=== PATIENT | male | born 1940 | race Caucasian/White ===

== ENCOUNTER 2018-05-06 12:15 | Inpatient (IN) | payer MEDICARE ==
[~2018-05-06] VITALS: Ht 175.3 cm; Wt 84.0 kg
[~2018-05-06 12:15] MED LIST: ASPIRIN EC81 MG PO; BUPROPION150 MG PO; COUMADIN2.5 MG PO; COUMADIN5 MG PO; DULERA1 AE1 IN; FERR SULFATE325 MG PO; LISINOPRIL/HYDR1 TA1 PO; METOPROL TAR25 MG PO; MULTI VIT PO; NITROSTAT0.4 MG SL; POTASSIMIN75 MG PO; PRESERVISION PO; PRILOSEC20 MG PO; PROAIR HFA IN; SIMVASTATIN20 MG PO; SYNTHROID100 MCG PO; TH VITAMIN B PO; VITAMIN C TR1000 MG PO; [UNRECOGNIZED DRUG - OTHER] PO
--- NOTE | 2018-05-06 12:24 | NUR ---
PT TO ROOM 10 VIA WHEELCHAIR WITH FAMILY
--- NOTE | 2018-05-06 12:35 | NUR ---
IV INITIATED LABS COLLECTED AND EKG COMPLETED. PT REPORTS SUDDEN ONSET OF DIZZINESS WHILE HE WAS WALKING HIS DOG CLINICAL NEUROPSYCHOLOGIST. PT WAS FOUND BY NEIGHBOR BUT DENIES ANY LOC. PT A&O X 3, PERRLA. MINIMAL ABRASION NOTED TO LEFT EYEBROW WITH NO ACTIVE BLEEDING. PT DENIES ANY PAIN AT THIS TIME BUT STATES "I GET LIKE THIS WHEN MY BLOOD PRESSURE IS LOW". PER FAMILY THIS HAS BEEN HAPPENING FREQUENTLY. BP NOW 90/50. LUNG SOUNDS CLEAR. OTHROSTATIC BP COMPLETED, PT REPORTS ONLY MINIMAL DIZZINESS UPON STANDING. PT ALSO CONCERNED WITH PULSES IN BILATERAL LOWER EXTREMITIES DUE TO STENTS IN LEGS. BILATERAL LEGS WARM TO THE TOUCH AND PEDAL PULSES FAINT BUT EQUAL. MLP AWARE OF PT CONCERNS. FAMILY AND PT AWARE OF PLAN OF CARE AND WAIT TIME. CALL TEAGUE WITHIN REACH.
[2018-05-06 12:59] LABS: IMMATURE GRANULOCYTES 0.2 % (0.0-1.0); MEAN CELL VOLUME 98.6 fL CALC (80.0-100.0); MEAN CORPUSCULAR HGB 32.3 pG CALC (26.0-32.0); MEAN CORPUSCULAR HGB CONC 32.7 g/L CALC (32.0-36.0); NEUT# 2.59 thou/uL (1.82-7.42); RED BLOOD COUNT 2.85 mill/uL (4.70-6.10); RED CELL DISTRI WIDTH 14.6 % (11.5-15.5)
--- NOTE | 2018-05-06 13:00 | NUR ---
PER DAUGHTER PT IS MORE CONFUSED THAN NORMAL AND IS STARING AT THE CALL TEAGUE. PT CONTINUES TO ANSWER QUESTIONS APPROPRIATELY AND IS A&O X3. CALL TEAGUE WITHIN REACH.
[2018-05-06 13:03] LABS: HEMATOCRIT 28.1 % (39.0-50.0); HEMOGLOBIN 9.2 g/dl (14.0-18.0)
[2018-05-06] MEDS ORDERED: B-121000 MC1 PO (13:11)
[2018-05-06] MEDS ORDERED: SYNTHROID150 MCG PO (13:16)
[2018-05-06] MEDS ORDERED: HYDROCHLOROT25 MG PO (13:19)
[2018-05-06] MEDS ORDERED: LISINOPRIL10 MG PO (13:19)
[2018-05-06] MEDS ORDERED: ISOSORB MONO30 MG PO (13:20)
[2018-05-06] MEDS ORDERED: ELIQUIS2.5 MG (13:22)
[2018-05-06 13:24] LABS: ACT PARTIAL THROMBO TIME 28.2 SECONDS (20.0-32.5); INTERNATIONAL NORMALIZED RATIO 1.1 RATIO (0.7-1.3); PROTHROMBIN TIME 11.8 SECONDS (9.0-12.5)
[2018-05-06 13:25] LABS: ALKALINE PHOSPHATASE 72 u/l (38-126); ANION GAP 17 (6-22 (CALC)); BILIRUBIN, TOTAL 0.6 mg/dL (0.0-1.4); BUN 32 mg/dL (8-23); BUN/CREATININE RATIO 25 (12-20 (CALC)); CARBON DIOXIDE 24 mmol/l (22-30); CHLORIDE 105 mmol/l (95-108); CREATININE 1.3 mg/dL (0.7-1.3); GFR 53 ML/MIN (>=60 (CALC)); GFR FOR AFR.AMER. > 60 ML/MIN (>=60 (CALC)); MAGNESIUM 2.2 mg/dL (1.6-2.3); POTASSIUM 4.9 mmol/l (3.5-5.1); SGOT/AST 19 u/l (19-48); SGPT/ALT 23 u/l (11-66); SODIUM 141 mmol/l (137-146); TOTAL PROTEIN 6.8 g/dL (6.3-8.2)
--- NOTE | 2018-05-06 13:30 | NUR ---
VERBAL ORDER RECIEVED FROM EVELIN MARISCAL TO BOLUS 250 MLS OF NS.
[2018-05-06 13:36] LABS: MYOGLOBIN 64 ng/mL (0 - 121)
--- NOTE | 2018-05-06 13:50 | NUR ---
PT PROVIDED URINE SPECIMEN AND FAMILY IS AWARE OF PENDING RESULTS. CALL TEAGUE WITHIN REACH.
[2018-05-06 14:08] LABS: URINE BILIRUBIN - DIPSTICK NEGATIVE (NEGATIVE); URINE BLOOD DIPSTICK NEGATIVE (NEGATIVE); URINE CLARITY CLEAR; URINE COLOR DK. YELLOW; URINE GLUCOSE - DIPSTICK NEGATIVE (NEGATIVE); URINE KETONE TRACE mg/dL (NEGATIVE); URINE LEUK ESTERASE TRACE (NEGATIVE); URINE NITRITE - DIPSTICK NEGATIVE (Negative); URINE PROTEIN - DIPSTICK NEGATIVE (NEG-TRACE); URINE SPECIFIC GRAVITY 1.015; URINE UROBILINOGEN - DIPSTICK 0.2 E.U./dL (0.2)
--- NOTE | 2018-05-06 14:20 | NUR ---
MLP AT BEDSIDE TO DISCUSS RESULTS AND PLAN FOR ADMISSION. PT REQUESTING SOMETHING TO EAT. ASSISTED WITH RECTAL EXAM. PT TOLERATED WELL. CALL TEAGUE WITHIN REACH.
--- NOTE | 2018-05-06 14:35 | NUR ---
FAMILY IS AWARE OF PENDING ADMISSION. FAMILY IS REQUESTING A NICOTINE PATCH, MLP NOTIFIED. IV FLUIDS INFUSING, IV SITE FREE FROM REDNESS AND EDEMA.
--- NOTE | 2018-05-06 15:15 | NUR ---
PER PT HE ALSO TAKES POTASSIUM AND MAGNESIUM EVERY DAY. PT'S WILL CALL WITH CORRECT DOSE. DAYAN MCKEON NOTIFIED.
--- NOTE | 2018-05-06 15:25 | NUR ---
REPORT CALLED TO DAYAN MCKEON.
--- NOTE | 2018-05-06 15:38 | NUR ---
Admission Note Report Given to: DAYAN MCKEON Transported by: Wheelchair X Stretcher Transported with: X Nurse Transporter X Patent IV O2 X Plunger Machine Operator PT TO ROOM 269, BEDSIDE REPORT TO MIKE.
--- NOTE | 2018-05-06 15:44 | NUR ---
PT ARRIVED TO MS2 VIA STRETCHER ACCOMPANIED BY ER STAFF AND FAMILY. PT AMBULATED WELL TO SCALE THEN STRETCHER. ALERT AND ORIENTED X3, ABRASION TO RFA, SKIN INTACT. ADMISSION ASSESSMENT COMPLETED. RESP EVEN AND UNLABORED. FAMILY TOOK MEDS HOME, RANEXA AND BUPROPION SENT TO PHARMACY TO BE PROFILED. IVF INFUSING WITHOUT DIFFICULTY. CALL LIGHT IN REACH,CONTINUE TO MONITOR.
[2018-05-06 15:45] VITALS: BP 130/75
[2018-05-06 19:16] VITALS: BP 92/51
[2018-05-06 20:07] VITALS: BP 85/50; BP 86/46; BP 92/50
[2018-05-07] VITALS (11 sets, daily range): BP systolic 94–131; BP diastolic 57–68
--- NOTE | 2018-05-07 04:54 | NUR ---
PATIENT RESTING IN BED AT THIS TIME-APPEARS SLEEPING WITH EYES CLOSED. IVF PATENT AND INFUSING AT 75CC/HR-SITE REMAINS HEALTHY AT THIS TIME. CALL LIGHT IN REACH. WILL CONT TO MONITOR.
[2018-05-07 05:09] LABS: HEMATOCRIT 26.2 % (39.0-50.0); HEMOGLOBIN 8.5 g/dl (14.0-18.0); MEAN CELL VOLUME 99.2 fL CALC (80.0-100.0); MEAN CORPUSCULAR HGB 32.2 pG CALC (26.0-32.0); MEAN CORPUSCULAR HGB CONC 32.4 g/L CALC (32.0-36.0); NEUT# 2.19 thou/uL (1.82-7.42); RED BLOOD COUNT 2.64 mill/uL (4.70-6.10); RED CELL DISTRI WIDTH 14.6 % (11.5-15.5)
[2018-05-07 05:10] LABS: ALBUMIN 3.2 g/dL (3.2-5.0); ALKALINE PHOSPHATASE 65 u/l (38-126); ANION GAP 9 (6-22 (CALC)); BILIRUBIN, TOTAL 0.4 mg/dL (0.0-1.4); BUN 25 mg/dL (8-23); BUN/CREATININE RATIO 24 (12-20 (CALC)); CARBON DIOXIDE 26 mmol/l (22-30); CHLORIDE 110 mmol/l (95-108); CREATININE 1.1 mg/dL (0.7-1.3); GFR > 60 ML/MIN (>=60 (CALC)); GFR FOR AFR.AMER. > 60 ML/MIN (>=60 (CALC)); POTASSIUM 4.4 mmol/l (3.5-5.1); SGOT/AST 16 u/l (19-48); SGPT/ALT 24 u/l (11-66); SODIUM 141 mmol/l (137-146); TOTAL PROTEIN 5.7 g/dL (6.3-8.2)
--- NOTE | 2018-05-07 07:55 | NUR ---
PT SITTING ON SIDE OF BED EATING BREAKFAST, NO SIGNS OF DISTRESS NOTED, RESP EVEN AND UNLABORED. PT ALERT AND ORIENTED X3, NO EDEMA. VITALS OBTAINED. BP LOW, MAINFRAME PROGRAMMER ANALYST NOTIFIED, IMDUR HELD. ASSESSMENT COMPLETED AT THIS TIME. CALL LIGHT IN REACH,CONTINUE TO MONITOR.
--- NOTE | 2018-05-07 14:33 | NUR ---
PT AMBULATING HALLWAY WITH TURBINE INSPECTOR, PT TOLERATING WELL, NO SIGNS OF DISTRESS NOTED, RESP EVEN AND UNLABORED. CONTINUE TO MONITOR.
--- NOTE | 2018-05-07 17:36 | NUR ---
PT SITTING ON SIDE OF BED, EATING DINNER. NO SIGNS OF DISTRESS NOTED, RESP EVEN AND UNLABORED. PT VOICES NO NEEDS OR COMPLAINTS AT THIS TIME. CALL LIGHT IN REACH,CONTINUE TO MONITOR.
--- NOTE | 2018-05-07 20:36 | NUR ---
PATIENT RESTING IN BED WITH HOB ELEVATED-AWAKE ALERT AND ORIENTEDX3. PATIENT WITH IVF NS PATENT AND INFUSING VIA LEFT AC IV SITE AT 75CC/HR. SITE APPEARS HEALTHY AT THIS TIME. PATIENT VOIDING QS CLEAR YELLOW URINE IN URINAL. ABD SOFT, NON-TENDER WITH ACTIVE BS-LAST BM YESTERDAY. PATIENT WITH NO PEDAL EDEMA AND PULSES FAINTLY PALPABLE. PATIENT STATES THAT HE IS HAVING NO CHEST PAIN AT THIS TIME BUT WHEN HE DOES EXHERT HIMSELF HE DOES SOMETIMES GET SHARP CHEST PAIN THAT RADIATES DOWN LEFT ARM-RELIEVED BY REST OR NITRO SL. DENIES ANY DIZZINESS OR LIGHTHEADEDNESS AT THIS TIME. TAKING PO FLUIDS WELL. SAFETY PRECAUTIONS REINFORCED. CALL LIGHT IN REACH. WILL CONT TO MONITOR.
--- NOTE | 2018-05-07 23:42 | NUR ---
PATIENT APPEARS SLEEPING WITH EYES CLOSED. RESP ARE EVEN AND UNLABORED. IVF NS PATENT AND INFUSING AT 75CC/HR VIA LEFT AC SITE. CALL LIGHT IN REACH. WILL CONT TO MONITOR.
[2018-05-08] VITALS (13 sets, daily range): BP systolic 98–135; BP diastolic 49–69
--- NOTE | 2018-05-08 04:42 | NUR ---
APPEARS SLEEPING AT THIS TIME WITH EYES CLOSED. RESP EVEN AND UNLABORED. TELE MONITORING DEVICE IN PLACE. CALL LIGHT IN REACH. WILL CONT TO MONITOR.
[2018-05-08 04:47] LABS: HEMATOCRIT 25.8 % (39.0-50.0); HEMOGLOBIN 8.3 g/dl (14.0-18.0); IMMATURE GRANULOCYTES 0.6 % (0.0-1.0); MEAN CELL VOLUME 99.6 fL CALC (80.0-100.0); MEAN CORPUSCULAR HGB CONC 32.2 g/L CALC (32.0-36.0); NEUT# 2.95 thou/uL (1.82-7.42); RED BLOOD COUNT 2.59 mill/uL (4.70-6.10); RED CELL DISTRI WIDTH 14.5 % (11.5-15.5)
[2018-05-08 04:57] LABS: ANION GAP 10 (6-22 (CALC)); BUN 20 mg/dL (8-23); BUN/CREATININE RATIO 21 (12-20 (CALC)); CARBON DIOXIDE 25 mmol/l (22-30); CHLORIDE 111 mmol/l (95-108); CREATININE 0.9 mg/dL (0.7-1.3); GFR > 60 ML/MIN (>=60 (CALC)); GFR FOR AFR.AMER. > 60 ML/MIN (>=60 (CALC)); POTASSIUM 4.4 mmol/l (3.5-5.1); SODIUM 142 mmol/l (137-146)
--- NOTE | 2018-05-08 10:54 | NUR ---
PT C/O R SIDE NUMBNESS TO HIS ARM AND FACE.VSS, RIGGING HELPER AT BEDSIDE, DISCUSSING POC.PT TAKEN DOWN TO RADIOLOGY STAT FOR CT/BRAIN AND CTA. CONTINUE TO MONITOR.
--- NOTE | 2018-05-08 11:15 | NUR ---
PT RETURNED TO ROOM, NOTED 20G TO RAC STARTED IN CT, CONTINUED FLUIDS TO SITE. CALL LIGHT IN REACH,CONTINUE TO MONITOR.
--- NOTE | 2018-05-08 11:40 | NUR ---
PT SITTING IN RECLINER AT BEDSIDE, EATING LUNCH. NO SIGNS OF DISTRESS NOTED, RESP EVEN AND UNLABORED. PT VOICES NO NEEDS OR COMPLAINTS AT THIS TIME. MEDICATED PER MAR.ENCOURAGED TO CALL IF ANY ISSUES REOCCUR OR WORSEN. CALL LIGHT IN REACH,CONTINUE TO MONITOR.
--- NOTE | 2018-05-08 14:46 | NUR ---
CALLED, VOICEMAIL LEFT NOTIFYING MD OF CONSULT.
--- NOTE | 2018-05-08 15:43 | NUR ---
PT RESTING IN BED, NO SIGNS OF DISTRESS NOTED,RESP EVEN AND UNLABORED.PT VOICES NO NEEDS OR COMPLAINTS AT THIS TIME. CALL LIGHT IN REACH,CONTINUE TO MONITOR.
--- NOTE | 2018-05-08 19:17 | NUR ---
PATIENT RESTING IN BED POSITIONED ON HIS SIDE WITH EYES CLOSED-APPEARS SLEEPING, RESP ARE EVEN AND UNLABORED. TELE MONITORING DEVICE IN PLACE. HEP LOCK TO RIGHT AC INTACT. CALL LIGHT IN REACH. WILL CONT TO MONITOR.
--- NOTE | 2018-05-08 20:54 | NUR ---
PATIENT RESTING IN BED-C/O TINGLING AROUND HIS MOUTH AND RIGHT ARM. VS TAKEN AND RECORDED. O2 VIA NASAL CANNULA AT 2LPM APPLIED. NO OTHER CHANGES IN NEURO CHECKS. HS MEDS WERE GIVEN AND PATIENT STATES THAT THE SX HAVE SUBSIDED. SAFETY PRECAUTIONS REINFORCED. O2 REMAINS IN PLACE. CALL LIGHT IN REACH. WILL CONT TO MONITOR.
--- NOTE | 2018-05-08 23:46 | NUR ---
PATIENT RESTING IN BED WITH O2 VIA NASAL CANNULA IN PLACE. PATIENT WITH NON-PRODUCTIVE COUGH. TEMP 100.3 AT THIS TIME. BLANKET REMOVED. CALL LIGHT IN REACH. WILL CONT TO MONITOR.
--- NOTE | 2018-05-09 03:52 | NUR ---
APPEARS SLEEPING WITH EYES CLOSED. RESP ARE EVEN AND UNLABORED. CALL LIGHT IN REACH. WILL CONT TO MONITOR.
[2018-05-09 04:00] VITALS: BP 92/50
--- NOTE | 2018-05-09 07:10 | NUR ---
REPORT RECEIVED FROM ESVIN RIBEIRO;PT APPEARS TO BE SLEEPING IN HIGH FOWLERS POSITION;RESPIRATIONS APPEAR EVEN AND UNLABORED ON 02 @ 2L VIA NC;NO S/S OF DISTRESS NOTED;TELE MONITOR IN PLACE;FALL PRECAUTIONS NOTED WITH BED IN THE LOWEST POSITION;CALL LIGHT IN REACH;WILL CONTINUE TO MONITOR
[2018-05-09 09:13] VITALS: BP 108/63
--- NOTE | 2018-05-09 09:15 | NUR ---
PT SITTING AT BEDSIDE;PT REPORTS IMPROVEMENT IN "NUMBNESS" TO FACE;VS OBTAINED AND ASSESSMENT COMPLETED;RESPIRATIONS EVEN AND UNLABORED ON RA,OXYGEN @ BEDSIDE PRN FOR COMFORT;ABDOMEN SOFT ON PALPATION AND ACTIVE IN ALL 4 QUADRANTS;WEAK PEDAL PULSES;NICOTINE PATCH APPLIED TO RIGHT SHOULDER;#20G TO RAC FLUSHED AND PATENT,NEW TEGADERM APPLIED PER REQUEST;TELE MONITOR IN PLACE;ABRASION NOTED TO LEFT EYE,KENIA AND CDI;PT DENIES ANY CURRENT NEEDS;FRESH WATER PROVIDED PER REQUEST;FALL PRECAUTIONS IN PLACE WITH CALL LIGHT IN REACH;WILL CONTINUE TO MONITOR
[2018-05-09 11:13] VITALS: BP 99/46
--- NOTE | 2018-05-09 11:45 | NUR ---
PT APPEARS TO BE SLEEPING IN SUPINE POSITION;NO S/S OF DISTRESS NOTED;RESPIRATIONS EVEN AND UNLABORED ON RA;TELE MONITOR IN PLACE;BED IN THE LOWEST POSITION WITH CALL LIGHT IN REACH;WILL CONTINUE TO MONITOR
--- NOTE | 2018-05-09 13:44 | NUR ---
ESVIN PATHAK AT BEDSIDE INTERROGATING PACEMAKER
[2018-05-09 15:21] VITALS: BP 112/58
--- NOTE | 2018-05-09 16:00 | NUR ---
PT BROTHER CALLED NURSES STATION LOOKING FOR PATIENT INFORMATION;INFORMED FAMILY MEMBER THAT IF HE DIDNT HAVE A PASSCODE I LEGALLY CAN NOT PROVIDE ANY INFORMATION BUT I COULD TRANSFER HIS CALL TO THE PATIENT ROOM;PT REPORTS THAT HE WOULD CALL BACK LATER,PT MADE AWARE
--- NOTE | 2018-05-09 16:19 | NUR ---
PT RESTING IN SUPINE POSITION;PT DENIES ANY CURRENT PAIN OR NEEDS;RESPIRATIONS EVEN AND UNLABORED ON RA;TELE MONITOR IN PLACE;PT INFORMED OF HIS BROTHER CALLING TO OBTAIN INFORMATION AND NOT HAVING THE PATIENT PASSCODE,THEREFORE NO INFORMATION WAS ABLE TO BE GIVEN AT THAT TIME;PT STATING "HE KEEPS ASKING ME AND HE DOESNT NEED TO KNOW ANYTHING,GOOD GIRL DONT GIVE IT TO HIM";RE-ASSURED PT AND ALL QUESTIONS ANSWERED;FALL PRECAUTIONS IN PLACE WITH CALL LIGHT IN REACH;WILL CONTINUE TO MONITOR
[2018-05-09 19:18] VITALS: BP 144/73
--- NOTE | 2018-05-09 19:20 | NUR ---
BEDSIDE REPORT RECEIVED FROM DAYAN VAZQUEZ. PT SITTING UP ON EDGE OF BED; ALERT, ORIENTED, AND TALKATIVE. DENIES PAIN. RESPIRATIONS EVEN AND UNLABORED ON ROOM AIR; O2 AT BEDSIDE PRN. TELE ON. AWAITING STOOL SAMPLE FROM PT. PLAN OF CARE DISCUSSED. PT ENCOURAGED TO VERBALZIE CONCERNS. STATES UNDERSTANDING. SAFETY MEASURES IN PLACE. CALL LIGHT WITHIN REACH.
[2018-05-10] VITALS (9 sets, daily range): BP systolic 87–131; BP diastolic 35–59
--- NOTE | 2018-05-10 | NUR ---
PT ASLEEP AT THIS TIME WITH NO SIGNS OF DISTRESS. RESPIRATIONS EVEN AND UNLABORED ON ROOM AIR. WAS OFF UNIT EARLIER VIA WHEELCHAIR FOR CT WHICH HE TOLERATED WELL. PT IS STAND BY ASSIST IN ROOM DUE TO POSITIVE ORTHOSTATIC BLOOD PRESSURES; STEADY GAIT. IV SITE APPEARS HEALTHY AND FLUSHES. SAFETY MEASURES IN PLACE. CALL LIGHT WITHIN REACH.
--- NOTE | 2018-05-10 03:55 | NUR ---
NO ACUTE CHANGES IN CONDITION THROUGHOUT THE NIGHT. PT USES CALL LIGHT PRN FOR ASSISTANCE. SAFETY MEASURES IN PLACE. CALL LIGHT WITHIN REACH.
[2018-05-10 04:47] LABS: HEMATOCRIT 26.2 % (39.0-50.0); HEMOGLOBIN 8.5 g/dl (14.0-18.0); IMMATURE GRANULOCYTES 0.3 % (0.0-1.0); MEAN CELL VOLUME 98.5 fL CALC (80.0-100.0); MEAN CORPUSCULAR HGB CONC 32.4 g/L CALC (32.0-36.0); NEUT# 3.95 thou/uL (1.82-7.42); RED BLOOD COUNT 2.66 mill/uL (4.70-6.10); RED CELL DISTRI WIDTH 14.4 % (11.5-15.5)
[2018-05-10 04:54] LABS: ANION GAP 12 (6-22 (CALC)); BUN 21 mg/dL (8-23); BUN/CREATININE RATIO 21 (12-20 (CALC)); CARBON DIOXIDE 28 mmol/l (22-30); CHLORIDE 104 mmol/l (95-108); GFR > 60 ML/MIN (>=60 (CALC)); GFR FOR AFR.AMER. > 60 ML/MIN (>=60 (CALC)); MAGNESIUM 1.8 mg/dL (1.6-2.3); POTASSIUM 4.8 mmol/l (3.5-5.1); SODIUM 139 mmol/l (137-146)
--- NOTE | 2018-05-10 08:30 | NUR ---
ASSESSMENT COMPLETD: PT IS SITTING ON THE SIDE OF THE BED., NO DISTRESS NOTED OTHO STATICS COMPLETED: SITTIN/35 STANDIN/50 LAYING :96/37 HR IS REG, PACED, ABD IS SOFT WITH ACTIVE BS. TELE MONITOR IN PLACE. CONITNUE TO OBSERVE AND MONITOR.
--- NOTE | 2018-05-10 08:53 | NUR ---
PT WAS SEEN SUPINE ON BED. AGREED TO PARTICIPATE WITH TX. PT WAS ABLE TO AMBULATE 100 FT. X 2 WITH RW AND SBA. HE APPEARED TO BE STABLE AND SAFE TO AMB. INDEP. WITH RW. PT REQUESTED TO REST LONGTERM BEFORE PROCEEDING BACK TO HIS ROOM. LEFT PT SITTING ON BED WITH CALL TEAGUE BESIDE HIM. NO ADVERSE RXNS NOTED OR REPORTED AT THE END OF TX.
--- NOTE | 2018-05-10 12:25 | NUR ---
PT IS SITTING ON THE SIDE OF THE BED, WITH NO DISTRESS NOTED. IV SITE IS FREE FROM REDNESS OR EDEMA. CONTINUE TO OSBERVE AND MONITOR
--- NOTE | 2018-05-10 16:30 | NUR ---
PT IS RELAXING ON THE SIDE OF THE BED, WITH NO DISTRESS NOTED. IV SITE IS FREE FROM REDNESS OR EDEMA.
--- NOTE | 2018-05-10 19:48 | NUR ---
BEDSIDE REPORT RECEIVED FROM DAYAN TYLER. PT RESTING IN BED ON LEFT SIDE; ALERT AND ORIENTED. DENIES PAIN. RESPIRATIONS EVEN AND UNLABROED ON ROOM AIR. PLAN OF CARE REVIEWED. PT ENCOURAGED TO VERBALIZE CONCERNS. STATES UNDERSTANDING. SAFETY MEASURES IN PLACE CALL LIGHT WITHIN REACH.
--- NOTE | 2018-05-10 22:07 | NUR ---
PT FOUND LAYING ON THE FLOOR OF BATHROOM ON LEFT SIDE. AUTO ENGINE MECHANIC STATES THAT SHE HEARD A BANG AND FOUND PT IN THIS POSITION. ROOM WELL LIT, CALL LIGHT WAS WITHIN REACH, BED IN LOW POSITION, AND NON SKID SOCKS ON. PT DENIES HITTING HEAD AND DENIES PAIN. PT STATES THAT HE WAS AMBULATING TO THE TOILET TO HAVE A BM. PT ASSISTED TO STANDING POSITION WITH ONE PERSON ASSIST AND ONTO TOILET. BLOOD PRESSURE 131/45 PULSE 60 RESPIRATIONS 22 OXYGEN SATURATION 97% ON RA. NOTIFED VIA TELEPHONE WITH NO NEW ORDERS. CONTINUE TO OBTAIN ORTHOSTATIC BLOOD PRESSURES Q SHIFT. PT EDUCATED ON SAFETY AND FALL RISK STATUS; CALL LIGHT SYSTEM REVIEWED. SAFETY MEASURES IN PLACE. CALL LIGHT WITHIN REACH.
[2018-05-11] VITALS (12 sets, daily range): BP systolic 85–114; BP diastolic 36–66
--- NOTE | 2018-05-11 00:15 | NUR ---
PT ASLEEP AT THIS TIME WITH NO SIGNS OF DISTRESS; AWAKENS TO VERBAL STIMULI. NEURO CHECKS REMAIN WNL FOR PT AND PT CONTINUES TO DENY ANY PAIN. REPSIRATIONS EVEN AND UNLABORED ON ROOM AIR. AMBULATED TO BATHROOM WITH STAND BY ASSIST; HAS USED CALL LIGHT SINCE FALL EARLIER THIS EVENING. IV SITE APPEARS HEALTHY AND FLUSHES. SAFETY MEASURES IN PLACE. CALL LIGHT WITHIN REACH.
--- NOTE | 2018-05-11 04:11 | NUR ---
NO ACUTE CHANGES IN CONDITION THROUGHOUT THE NIGHT. PT HAS NO REQUESTS OR CONCERNS WHILE AWAKE. SAFETY MEASURES IN PLACE. CALL LIGHT WITHIN REACH.
[2018-05-11 04:53] LABS: HEMATOCRIT 25.8 % (39.0-50.0); HEMOGLOBIN 8.4 g/dl (14.0-18.0); MEAN CELL VOLUME 98.5 fL CALC (80.0-100.0); MEAN CORPUSCULAR HGB 32.1 pG CALC (26.0-32.0); MEAN CORPUSCULAR HGB CONC 32.6 g/L CALC (32.0-36.0); RED BLOOD COUNT 2.62 mill/uL (4.70-6.10); RED CELL DISTRI WIDTH 14.3 % (11.5-15.5)
--- NOTE | 2018-05-11 07:15 | NUR ---
REPORT RECEIVED FROM ESVIN LAKHANI;PT RESTING IN SUPINE POSITION;INTRODUCED SELF TO PT AND POC DISCUSSED;PT DENIES ANY CURRENT PAIN OR DISCOMFORTS;RESPIRATIONS EVEN AND UNLABORED ON RA;TELE MONITOR IN PLACE;EDUCATED PT ON THE IMPORTANCE OF CALLING FOR ASSISTANCE WITH AMBULATION R/T RECENT EVENTS CONSISTING OF A FALL LAST NIGHT 05/10/18,PT VERBALIZES UNDERSTANDING;FALL PRECAUTIONS IN PLACE WITH BED IN THE LOWEST POSITION;CALL LIGHT IN REACH;WILL CONTINUE TO MONITOR
--- NOTE | 2018-05-11 08:20 | NUR ---
PT RESTING AT BEDSIDE;VS OBTAINED AND ASSESSMENT COMPLETED;PT DENIES ANY CURRENT PAIN OR DISCOMFORTS,PAIN SCALE AND REPORTING RE-EDUCATED;RESPIRATIONS EVEN AND UNLABORED ON RA,CLEAR/DIMINISHED LUNG SOUNDS NOTED;ABDOMEN SOFT ON PALPATION AND HYPERACTIVE IN ALL 4 QUADRANTS,LAST BM 05/06/18 WARM PRUNE JUICE PROVIDED AT THIS TIME;PT DOES REPORT FLATULENCE;#20G TO RAC FLUSHED AND PATENT,SITE APPEARS HEALTHY;TELE MONITOR IN PLACE;SMALL ABRASION NOTED TO LEFT EYEBROW,KENIA;NICOTINE PATCH APPLIED TO RIGHT UPPER ARM;PT DENIES ANY NEEDS AND IS ENCOURAGED TO CALL FOR ASSISTANCE IF NEEDED;FALL PRECAUTIONS IN PLACE WITH BED IN THE LOWEST POSITION;CALL LIGHT IN REACH;WILL CONTINUE TO MONITOR
--- NOTE | 2018-05-11 09:20 | NUR ---
PT AMBULATING THE HALLWAYS WITH PHYSICAL THERPAY AND WALKER,STEADY GAIT OBSERVED.
--- NOTE | 2018-05-11 10:06 | NUR ---
PT WAS SEEN RESTING ON BED. PT WAS REMINDED ON FALL PRECAUTIONS AND INSTRUCTED ON CALLING THE NURSE IF HE NEEDED TO GET UP. HE WAS ABLE TO SAFELY AMBULATE 100 FT. X 2 WITH RW AND CGA WITH NO COMPLAINTS OTHER THAN A REQUEST TO TAKE REST PERIOD IN BETWEEN. PT THEN DID RBG-JE-PLELX X 10 REPS USING B HANDS TO PUSH SELF UP TO STAND. HE THEN RETURNED TO HIS ROOM AND SAT ON THE RECLINER WITH LEG REST IN ELEVATED POSITION. HANDED THE CALL TEAGUE TO PT AND ONCE AGAIN REINFORCED FALL PRECAUTIONS. NO ADVERSE REACTIONS NOTED OR REPORTED AT THE END OF TX.
--- NOTE | 2018-05-11 11:30 | NUR ---
PT OOB RESTING IN RECLINER;ORTHOSTATICS WERE PREVIOUSLY OBTAINED BY ISRRAEL CURRY AND POSITIVE ON AMBULATION:SEE INTERVENTIONS;RESPIRATIONS EVEN AND UNLABORED ON RA;TELE MONITOR IN PLACE;NO BM AT THIS TIME,PT WAS GIVEN MIRLAX AND MOM AT 1000;IV SITE REMAINS PATENT TO [facility];PT DENIES ANY NEEDS;FALL PRECAUTIONS IN PLACE WITH CALL LIGHT IN REACH;WILL CONTINUE TO MONITOR
--- NOTE | 2018-05-11 14:00 | NUR ---
CONSENT OBTAINED AT THIS TIME,PT VERBALIZES UNDERSTANDING OF BLOOD TRANSFUSION;ALL QUESTIONS ANSWERED AND TRANSFUSION DISCUSSED INDEPTH;WILL CONTINUE TO MONITOR
--- NOTE | 2018-05-11 14:34 | NUR ---
FIRST UNIT OF PRBC'S STARTED AT THIS TIME BY PAULINERN AND DAYAN BONNER;S/S OF A BLOOD TRANSFUSION REACTION EXPLAINED IN DETAIL AND PT VERBALIZES UNDERSTANDING;WRITTER TO REMAIN AT BEDSIDE FOR THE INITIAL 15 MINS;WILL CONTINUE TO MONITOR
--- NOTE | 2018-05-11 14:40 | NUR ---
MIKE FROM [employer] WILL BE AT [facility] TOMORROW 05/12/18 AFTER 1015AM TO INSPECT PT'S PACEMAKER,PEDRO BROWN,ANRP NOTIFIED.
--- NOTE | 2018-05-11 14:53 | NUR ---
VS OBTAINED BP 90/50 HR 60 TEMP 97.4;PT ASYMPTOMATIC TO LOW BP;PEDRO MCKEON,ANRP MADE AWARE OF LOWER BLOOD PRESSURE;NEW NEW ORDERS RECEIVED AT THIS TIME;WILL CONTINUE TO MONITOR
--- NOTE | 2018-05-11 15:12 | NUR ---
KAYLA FROM [employer] WILL BE HERE WITHIN THE HOUR TO INTERROGATE PT PACEMAKER INSTEAD OF TOMORROW
--- NOTE | 2018-05-11 15:33 | NUR ---
PT OOB RESTING IN RECLINER;BLOOD TRANSFUSION INFUSING WITH EASE TO RAC,PT TOLERATING WELL;NO S/S OF DISTRESS NOTED;LUNG SOUNDS REMAIN CLEAR/DIMINISHED ON AUSCULTATION;VS OBTAINED BP 98/53 HR 60 TEMP 96.6;PT DENIES ANY ADDITIONAL NEEDS;FALL PRECAUTIONS IN PLACE WITH CALL LIGHT IN REACH;WILL CONTINUE TO MONITOR
--- NOTE | 2018-05-11 16:10 | NUR ---
KAYLA AT BEDSIDE INTERROGATING PACEMAKER AT THIS TIME.
--- NOTE | 2018-05-11 16:33 | NUR ---
PT REMAINS OOB RESTING IN RECLINER;BLOOD TRANSFUSION CONTINUES TO INFUSE WITH EASE TO RAC;PT DENIES ANY PAIN OR DISCOMFORTS;RESPIRATIONS EVEN AND UNLABORED ON RA;TELE MONITOR IN PLACE;WILL CONTINUE TO MONITOR
--- NOTE | 2018-05-11 17:30 | NUR ---
PT RESTING IN RECLINER;BLOOD TRANSFUSION COMPLETED AT THIS TIME,PT TOLERATED WELL;VS OBTAINED BP 110/59 HR 64 TEMP 97.5;PT DENIES ANY CURRENT NEEDS;WILL CONTINUE TO MONITOR
--- NOTE | 2018-05-11 19:40 | NUR ---
PT WOKE FOR ASSESSMENT, PT RESTING IN BED. RESP EVEN AND UNLABORED ON ROOM AIR. TELE ON. LUNGS CLEAR/DIMINISHED IN BASES. ABD SOFT, ACTIVE BOWEL SOUNDS. PEDAL PULSES PALPATED BILAT. IV RAC PATENT; FLUSHED WITHOUT DIFFICULTY. PT DENIES PAIN. SAFETY PRECAUTIONS REINFORCED, PT ENCOURAGED TO CALL FOR ASSISTANCE. FREQUENT ROUNDS MADE. CALL LIGHT WITHIN REACH.
[2018-05-12] VITALS: BP 114/56
--- NOTE | 2018-05-12 00:40 | NUR ---
PT SLEEPING WITH EYES CLOSED. RESP EVEN AND UNLABORED. NO DISTRESS NOTED. TELE ON. CALL LIGHT WITHIN REACH.
[2018-05-12 04:07] VITALS: BP 110/58
[2018-05-12 04:10] VITALS: BP 117/68
--- NOTE | 2018-05-12 04:10 | NUR ---
ASSESSMENT UNCHANGED; RESP EVEN AND UNLABORED. NO DISTRESS NOTED. TELE IN PLACE. CALL LIGHT WITHIN REACH.
[2018-05-12 04:12] VITALS: BP 98/60
[2018-05-12 04:58] LABS: HEMOGLOBIN 9.4 g/dl (14.0-18.0); MEAN CELL VOLUME 95.9 fL CALC (80.0-100.0); MEAN CORPUSCULAR HGB 32.2 pG CALC (26.0-32.0); MEAN CORPUSCULAR HGB CONC 33.6 g/L CALC (32.0-36.0); RED BLOOD COUNT 2.92 mill/uL (4.70-6.10); RED CELL DISTRI WIDTH 14.6 % (11.5-15.5)
[2018-05-12 05:42] LABS: ANION GAP 12 (6-22 (CALC)); BUN 17 mg/dL (8-23); BUN/CREATININE RATIO 19 (12-20 (CALC)); CARBON DIOXIDE 29 mmol/l (22-30); CHLORIDE 104 mmol/l (95-108); CREATININE 0.9 mg/dL (0.7-1.3); GFR > 60 ML/MIN (>=60 (CALC)); GFR FOR AFR.AMER. > 60 ML/MIN (>=60 (CALC)); POTASSIUM 4.6 mmol/l (3.5-5.1); SODIUM 140 mmol/l (137-146)
--- NOTE | 2018-05-12 07:20 | NUR ---
REPORT RECEIVED FROM DAYAN BARRON;PT OOB RESTING IN RECLINER;INTRODUCED SELF TO PT AND POC DISCUSSED;PT DENIES ANY CURRENT PAIN OR NEEDS;RESPIRATIONS EVEN AND UNLABORED ON RA;TELE MONITOR IN PLACE;FRESH COFFEE PROVIDED PER REQUEST;ENCOURAGED PT TO CALL FOR ASSISTANCE IF NEEDED;FALL PRECAUTIONS;CALL LIGHT IN REACH;WILL CONTINUE TO MONITOR
--- NOTE | 2018-05-12 07:45 | NUR ---
PT OOB RESTING IN RECLINER;VS OBTAINED AND ASSESSMENT COMPLETED;PT DENIES ANY CURRENT PAIN OR NEEDS;RESPIRATIONS EVEN AND UNLABORED ON RA,CLEAR/DIMINISHED LUNG SOUNDS NOTED;ABDOMEN SOFT ON PALPATION AND ACTIVE IN ALL 4 QUADRANTS;#20G TO RAC FLUSHED AND PATENT,DRIED BLOOD NOTED TO TEGADERM;NEW TEGADERM APPLIED;PT EDUCATED ON IV SITE EXPIRATION DATE AND REFUSES SITE CHANGE AT THIS TIME;TELE MONITOR IN PLACE;PT DENIES ANY CURRENT NEEDS;ENCOURAGED TO CALL FOR ASSISTANCE IF NEEDED;FALL PRECAUTIONS IN PLACE WITH CALL LIGHT IN REACH;WILL CONTINUE TO MONITOR
[2018-05-12 07:46] VITALS: BP 108/69; BP 180/69
--- NOTE | 2018-05-12 09:38 | NUR ---
XRAY AT BEDSIDE
[2018-05-12 11:24] VITALS: BP 100/55
--- NOTE | 2018-05-12 12:00 | NUR ---
PT OOB RESTING IN RECLINER;PT DENIES ANY CURRENT PAIN OR DIZZINESS;RESPIRATIONS EVEN AND UNLABORED ON RA;TELE MONITOR IN PLACE;IV SITE REMAINS PATENT TO RAC;ENCOURAGED PT TO CALL FOR ASSISTANCE IF NEEDED;FALL PRECAUTIONS IN PLACE WITH CALL LIGHT IN REACH;WILL CONTINUE TO MONITOR
[2018-05-12] MEDS ORDERED: METOPROL TAR25 MG PO (12:34)
--- NOTE | 2018-05-12 13:40 | NUR ---
ALL DISCHARGE INFORMATION GIVEN AT THIS TIME AND PRESCRIPTIONS DISCUSSED INDEPTH;ALL QUESTIONS ANSWERED FROM SPOUSE AND PT;PT DENIES ANY ADDITIONAL NEEDS AT THIS;IV SITE REMOVED WITH CATHETER INTACT;HOME MEDICATIONS PROVIDED; WHEELCHAIR PROVIDED FOR DISCHARGE WELL
--- NOTE | 2018-05-12 13:50 | NUR ---
Discharge instructions given. Patient verbalizes understanding of same. Discharged in stable condition via Wheelchair to Home with family. All belongings sent with pt.
== END 2018-05-12 13:50 | disposition home or self-care (01) | DRG 812 ==
LOC: ED 12:15 → ED-I 14:18 → ED 14:50 → MS2 14:51
PROVIDERS: Nurse Practitioner; Nurse Practitioner Family; ADMIT Internal Medicine; ATTEND Internal Medicine
PROC: 30233N1 Transfusion of Nonautologous Red Blood Cells into Peripheral Vein, Percutaneous Approach (ICD-10-PCS; principal; 2018-05-11)
DX: D50.9 Iron deficiency anemia, unspecified (principal); N17.9 Acute kidney failure, unspecified; I50.22 Chronic systolic (congestive) heart failure; I95.2 Hypotension due to drugs; T46.4X5A Adverse effect of angiotensin-converting-enzyme inhibitors, initial encounter; E86.0 Dehydration; K21.9 Gastro-esophageal reflux disease without esophagitis; F32.9 Major depressive disorder, single episode, unspecified; I73.9 Peripheral vascular disease, unspecified; E23.7 Disorder of pituitary gland, unspecified; F17.210 Nicotine dependence, cigarettes, uncomplicated; R20.0 Anesthesia of skin; I25.118 Atherosclerotic heart disease of native coronary artery with other forms of angina pectoris; I71.4 Abdominal aortic aneurysm, without rupture; I48.2 Chronic atrial fibrillation; I11.0 Hypertensive heart disease with heart failure; R63.4 Abnormal weight loss; K59.00 Constipation, unspecified; E03.9 Hypothyroidism, unspecified; S00.81XA Abrasion of other part of head, initial encounter; W01.0XXA Fall on same level from slipping, tripping and stumbling without subsequent striking against object, initial encounter; D63.8 Anemia in other chronic diseases classified elsewhere; I25.2 Old myocardial infarction; Z95.820 Peripheral vascular angioplasty status with implants and grafts; Z68.27 Body mass index [BMI] 27.0-27.9, adult; Z95.5 Presence of coronary angioplasty implant and graft; Z95.0 Presence of cardiac pacemaker; Z79.01 Long term (current) use of anticoagulants; Z95.1 Presence of aortocoronary bypass graft
CPT/HCPCS: G0328; G0378; P9016; Q9967

== ENCOUNTER → 2018-12-14 | Outpatient (REF) | payer MEDICARE ==
[~2018-12-14] MED LIST changes: +B-121000 MC1 PO; +ELIQUIS2.5 MG; +HYDROCHLOROT25 MG PO; +ISOSORB MONO30 MG PO; +LISINOPRIL10 MG PO; +MAGNESIUM 250 M1 TAB PO; +PRESERVISION ARED1 PO; +SYNTHROID150 MCG PO
[2018-12-14 12:38] LABS: HEMATOCRIT 33.7 % (39.0-50.0); HEMOGLOBIN 11.1 g/dl (14.0-18.0); MEAN CORPUSCULAR HGB 34.3 pG CALC (26.0-32.0); MEAN CORPUSCULAR HGB CONC 32.9 g/L CALC (32.0-36.0); RED BLOOD COUNT 3.24 mill/uL (4.70-6.10); RED CELL DISTRI WIDTH 14.6 % (11.5-15.5)
[2018-12-14 12:58] LABS: ALBUMIN 4.3 g/dL (3.2-5.0); ALKALINE PHOSPHATASE 86 u/l (38-126); ANION GAP 14 (6-22 (CALC)); BILIRUBIN, TOTAL 0.6 mg/dL (0.0-1.4); BUN 14 mg/dL (8-23); BUN/CREATININE RATIO 14 (12-20 (CALC)); CARBON DIOXIDE 29 mmol/l (22-30); CHLORIDE 103 mmol/l (95-108); GFR > 60 ML/MIN (>=60 (CALC)); GFR FOR AFR.AMER. > 60 ML/MIN (>=60 (CALC)); POTASSIUM 4.3 mmol/l (3.5-5.1); SGOT/AST 24 u/l (19-48); SODIUM 141 mmol/l (137-146); TOTAL PROTEIN 6.8 g/dL (6.3-8.2)
[2018-12-14 13:25] LABS: TSH, 3RD GENERATION 2.54 uIU/mL (0.47 - 4.68)
== END | disposition home or self-care (01) ==
LOC: LAB 11:15
PROVIDERS: ATTEND Internal Medicine
DX: I25.810 Atherosclerosis of coronary artery bypass graft(s) without angina pectoris (principal); E03.9 Hypothyroidism, unspecified

== ENCOUNTER → 2018-12-30 | Outpatient (REF) | payer MEDICARE | END | disposition home or self-care (01) | LOC: DI 10:27 | PROVIDERS: ATTEND Nurse Practitioner Family | DX: R06.02 Shortness of breath (principal) ==

== ENCOUNTER → 2019-01-04 | Day surgery (SDC) | payer MEDICARE ==
[~2019-01-04] VITALS: Ht 177.8 cm; Wt 83.9 kg
[2019-01-04 11:30] VITALS: BP 103/53
== END | disposition home or self-care (01) ==
LOC: ENDO 12-21 08:45
PROVIDERS: ATTEND Surgery
PROC: 0DJD8ZZ Inspection of Lower Intestinal Tract, Via Natural or Artificial Opening Endoscopic (ICD-10-PCS; principal; 2019-01-04)
DX: Z12.11 Encounter for screening for malignant neoplasm of colon (principal); K57.30 Diverticulosis of large intestine without perforation or abscess without bleeding; I25.10 Atherosclerotic heart disease of native coronary artery without angina pectoris; Z95.1 Presence of aortocoronary bypass graft; Z95.0 Presence of cardiac pacemaker

== ENCOUNTER 2019-05-15 01:33 | Emergency (ER) | payer MEDICARE ==
[~2019-05-15] VITALS: Ht 177.8 cm; Wt 83.0 kg
[2019-05-15 02:19] LABS: HEMATOCRIT 29.1 % (39.0-50.0); HEMOGLOBIN 9.3 g/dl (14.0-18.0); IMMATURE GRANULOCYTES 0.2 % (0.0-5.0); MEAN CELL VOLUME 103.9 fL CALC (80.0-100.0); MEAN CORPUSCULAR HGB 33.2 pG CALC (26.0-32.0); NEUT# 3.16 thou/uL (1.82-7.42); RED BLOOD COUNT 2.8 mill/uL (4.70-6.10); RED CELL DISTRI WIDTH 15.1 % (11.5-15.5)
[2019-05-15 02:30] LABS: ALBUMIN 4.1 g/dL (3.2-5.0); ALKALINE PHOSPHATASE 81 u/l (38-126); AMYLASE 51 u/l (30-110); ANION GAP 14 (6-22 (CALC)); BILIRUBIN, TOTAL 0.6 mg/dL (0.0-1.4); BUN 18 mg/dL (8-23); BUN/CREATININE RATIO 19 (12-20 (CALC)); CARBON DIOXIDE 26 mmol/l (22-30); CHLORIDE 107 mmol/l (95-108); CREATININE 0.9 mg/dL (0.7-1.3); GFR > 60 ML/MIN (>=60 (CALC)); GFR FOR AFR.AMER. > 60 ML/MIN (>=60 (CALC)); LIPASE 54 u/l (23-300); POTASSIUM 4.5 mmol/l (3.5-5.1); SGOT/AST 27 u/l (19-48); SODIUM 142 mmol/l (137-146); TOTAL PROTEIN 6.7 g/dL (6.3-8.2)
[2019-05-15 06:00] VITALS: BP 125/60
== END 2019-05-15 06:10 | disposition home or self-care (01) ==
LOC: ED 01:33
PROVIDERS: Emergency Medicine
DX: K52.9 Noninfective gastroenteritis and colitis, unspecified (principal); I10 Essential (primary) hypertension; I73.9 Peripheral vascular disease, unspecified; F17.210 Nicotine dependence, cigarettes, uncomplicated; Z95.1 Presence of aortocoronary bypass graft; Z95.0 Presence of cardiac pacemaker; Z95.820 Peripheral vascular angioplasty status with implants and grafts
CPT/HCPCS: Q9967

== ENCOUNTER 2019-09-01 07:20 | Day surgery (SDC) | payer OTHER ==
[~2019-09-01] VITALS: Ht 175.3 cm; Wt 82.1 kg
[~2019-09-01 07:20] MED LIST changes: +ASPIRIN LOW DOS81 M1 PO
[2019-09-01 09:55] VITALS: BP 118/56
== END 2019-09-01 10:03 | disposition home or self-care (01) | DRG 392 ==
LOC: ENDO 07:20 → ORM 08:05 → ENDO 08:05 → ORM 11:45
PROVIDERS: ATTEND Internal Medicine Gastroenterology
PROC: 0DD78ZX Extraction of Stomach, Pylorus, Via Natural or Artificial Opening Endoscopic, Diagnostic (ICD-10-PCS; principal; 2019-09-01)
DX: K21.9 Gastro-esophageal reflux disease without esophagitis (principal); I85.00 Esophageal varices without bleeding; K25.9 Gastric ulcer, unspecified as acute or chronic, without hemorrhage or perforation; K29.80 Duodenitis without bleeding; K29.70 Gastritis, unspecified, without bleeding; D64.9 Anemia, unspecified; I25.10 Atherosclerotic heart disease of native coronary artery without angina pectoris; J44.9 Chronic obstructive pulmonary disease, unspecified; E03.9 Hypothyroidism, unspecified; Z95.5 Presence of coronary angioplasty implant and graft; Z95.0 Presence of cardiac pacemaker; Z86.010 Personal history of colon polyps

== ENCOUNTER 2020-05-20 15:52 | Observation (INO) | payer OTHER, MEDICARE, MEDICAID ==
[~2020-05-20] VITALS: Ht 175.3 cm; Wt 73.0 kg
--- NOTE | 2020-05-20 16:15 | NUR ---
pt placed back in er lobby awaiting room assignment
[2020-05-20] MEDS ORDERED: VITAMIN D PO (16:17)
--- NOTE | 2020-05-20 16:30 | NUR ---
PT CHANGED TO GOWN. MONITORS APPLIED. PT AO X 3. SKIN PINK WARM AND DRY. PT REPORTS LEAKING URINE AND FEELING INCREASINGLY WEAK.
--- NOTE | 2020-05-20 17:30 | NUR ---
PT RESTING ON STRETCHER AWAITING RESULTS
[2020-05-20 17:48] LABS: HEMATOCRIT 32.1 % (39.0-50.0); HEMOGLOBIN 10.2 g/dl (14.0-18.0); IMMATURE GRANULOCYTES 0.5 % (0.0-5.0); MEAN CELL VOLUME 106.3 fL CALC (80.0-100.0); MEAN CORPUSCULAR HGB 33.8 pG CALC (26.0-32.0); MEAN CORPUSCULAR HGB CONC 31.8 g/dL CAL (32.0-36.0); NEUT# 1.95 thou/uL (1.82-7.42); RED BLOOD COUNT 3.02 mill/uL (4.70-6.10); RED CELL DISTRI WIDTH 14.4 % (11.5-15.5)
[2020-05-20 17:58] LABS: URINE BILIRUBIN - DIPSTICK NEGATIVE (NEGATIVE); URINE BLOOD DIPSTICK NEGATIVE (NEGATIVE); URINE COLOR YELLOW; URINE GLUCOSE - DIPSTICK NEGATIVE (NEGATIVE); URINE KETONE NEGATIVE (NEGATIVE); URINE LEUK ESTERASE NEGATIVE (NEGATIVE); URINE NITRITE - DIPSTICK NEGATIVE (Negative); URINE PROTEIN - DIPSTICK NEGATIVE (NEG-TRACE); URINE UROBILINOGEN - DIPSTICK 0.2 E.U./dL (0.2)
[2020-05-20 18:02] LABS: ALBUMIN 4.2 g/dL (3.2-5.0); ALKALINE PHOSPHATASE 84 u/l (38-126); ANION GAP 6 (6-22 (CALC)); BILIRUBIN, TOTAL 0.6 mg/dL (0.0-1.4); BUN 12 mg/dL (8-23); BUN/CREATININE RATIO 12 (12-20 (CALC)); CARBON DIOXIDE 31 mmol/l (22-30); CHLORIDE 103 mmol/l (95-108); GFR > 60 ML/MIN (>=60 (CALC)); GFR FOR AFR.AMER. > 60 ML/MIN (>=60 (CALC)); SGOT/AST 32 u/l (19-48); SODIUM 137 mmol/l (137-146); TOTAL PROTEIN 7.3 g/dL (6.3-8.2)
[2020-05-20 18:14] LABS: MYOGLOBIN 45 ng/mL (0 - 121)
--- NOTE | 2020-05-20 19:08 | NUR ---
REPORT GIVEN TO BILLY MCALLISTER
--- NOTE | 2020-05-20 20:18 | NUR ---
Pt denies complaints. Pt states I get short of breath when I walk around or do anything. Resps even, unlabbored.
[2020-05-20 21:28] VITALS: BP 166/84
--- NOTE | 2020-05-20 21:34 | NUR ---
PT. ARRIVED TO THE FLOOR @2114 WITH ER NURSE.ORIENTED TO CALL LIGHT, ROOM, AND POC; VERBALIZES UNDERSTANDING. PT. C/O CRAMPING TO BLE AND REPORTS ONLY POTASSIUM WILL WORK; PT. IS EDUCATED THAT POTASSIUM LEVEL IS NORMAL AND PT. OKAY IF THIS IT SERVICE CONTINUITY SUPERVISOR GIVES HIM ORANGE JUICE. OFFERED TYLENOL AND SLEEPING AIDE TO ASSIST TO GET REST AND PT. IS IN AGREEEMENT; PT. ALSO REQUESTING NEB TX; NOTIFIED DR. LYNCH OF THIS ALONG WITH B/P / AND ORDERS RECEIVED FOR PRN INHALOR ONLY AT THIS TIME;PT. UPDATED. IV SITE PATENT AND SL; TELEMETRY IN PLACE. PT. IS ON RA. 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 DENIES HAVING ANY FEVERS. PT. EDUCATED ON COVID SWAB PENDING AND NEEDING ISOLATION UNTIL RESULTS ARE BACK. ENCOURAGED TO CALL FOR ANY NEEDS. CALL LIGHT IS IN REACH. WILL CONTINUE TO MONITOR.
[2020-05-21] VITALS (7 sets, daily range): BP systolic 96–119; BP diastolic 41–57
--- NOTE | 2020-05-21 01:20 | NUR ---
PT. RESTING IN BED ON LEFT SIDE WITH EYES CLOSED; AWAKENED TO INSPECT TELEMTRY ELECTRODES AND FIXED AT THIS TIME WELL BATTERIES CHANGED. PT. DENIES NEEDS. CALL LIGHT IS IN REACH.
--- NOTE | 2020-05-21 05:20 | NUR ---
PT. PROVIDED WITH SANDWICH AND ORANGE JUICE ALONG WITH FRESH WATER; DENIES FURTHER NEEDS. NO DISTRESS NOTED; ENCOURAGED TO CALL FOR ANY NEEDS.
--- NOTE | 2020-05-21 07:05 | NUR ---
REPORT RECEIVED FROM ESVIN PYLE.
--- NOTE | 2020-05-21 09:00 | NUR ---
PT RESTING IN SEMI FOWLERS POSITION,A&O X3;VS OBTAINED AND ASSESSMENT COMPLETED;PT DENIES ANY CURRENT PAIN OR NEEDS,PAIN SCALE AND REPORTING EDUCATED;RESPIRATIONS SHALLOW ON RA,COARSE/DIMINISHED LUNG SOUNDS NOTED;PRODUCTIVE WHITE COUGH, PT REPORTS HE HAS HAD A PRODUCTIVE COUGH FOR YEARS DUE TO SMOKING;ABDOMEN SOFT ON PALPATION AND ACTIVE IN ALL 4 QUADRANTS;WEAK PEDAL PULSES;SKIN INTACT;TELE MONITORING IN PLACE;#20G TO RAC FLUSHED AND PATENT,SITE APPEARS HEALTHY;PT EDUCATED ON ORDER FOR THOROCENTESIS AND VERBALIZES UNDERSTANDING, SCHEDULED ASPIRIN 81MG PO HELD AT THIS TIME PER BRAULIO CABALLERO;PT REMAINS IN AIR/CONTACT PRECAUTIONS DUE TO PENDING COVID19 TESTING;PT DENIES ANY ADDITIONAL NEEDS AT THIS TIME AND IS ENCOURAGED TO CALL FOR ASSISTANCE IF NEEDED;FALL PRECAUTIONS REMAIN IN PLACE WITH BED IN THE LOWEST POSITION AND CALL LIGHT IN REACH;WILL CONTINUE TO MONITOR
--- NOTE | 2020-05-21 10:35 | NUR ---
PT TRANSPORTED TO RADIOLOGY IN STABLE CONDITION VIA WHEELCHAIR ACCOMPANIED BY ISRRAEL MAN.
--- NOTE | 2020-05-21 11:07 | NUR ---
PT RETURNED BACK TO MED/SURG 281 IN STABLE CONDITION VIA WHEELCHAIR ACCOMPANIED BY LATOSHA CARLTON.
--- NOTE | 2020-05-21 11:45 | NUR ---
PT RESTING IN SEMI FOWLERS POSITION;RESPIRATIONS REMAIN EVEN AND UNLABORED ON RA;PT DENIES ANY CURRENT PAIN OR NEEDS;TELE MONITORING IN PLACE;DRESSING TO LEFT LOWER BACK INTACT;PT REQUESTING NICOTINE PATCH, ANRP NOTIFIED OF REQUEST;PT DENIES ANY ADDITIONAL NEEDS AND IS ENCOURAGED TO CALL FOR ASSISTANCE IF NEEDED;CALL LIGHT IN REACH;WILL CONTINUE
--- NOTE | 2020-05-21 15:30 | NUR ---
PT RESTING IN SEMI FOWLERS POSITION;RESPIRATIONS EVEN AND UNLABORED ON RA, O2 SATS 93%;PT DENIES ANY CURRENT PAIN OR DISCOMFORTS;TELE MONITORING IN PLACE;IV SITE PATENT;ASSESSMENT REMAINS UNCHANGED AT THIS TIME;PT DENIES ANY ADDITIONAL NEEDS;ENCOURAGED TO CALL FOR ASSISTANCE IF NEEDED;FALL PRECAUTIONS REMAIN IN PLACE WITH BED IN THE LOWEST POSITION AND CALL LIGHT IN REACH;WILL CONTINUE TO MONITOR
--- NOTE | 2020-05-21 21:02 | NUR ---
PT RESTING IN BED, ALERT AND ORIENTED. RESPIRATIONS EVEN AND UNLABORED ON RA. LUNGS SOUND DIMINISHED. PEDAL PULSES WEAK. PT DENIES ANY PAIN OR DISCOMFORT AT THIS TIME. #20 RAC PATENT AND APPEARS HEALTHY. SAFETY PRECAUTIONS IN PLACE. WILL CONTINUE TO MONITOR.
[2020-05-22] VITALS (7 sets, daily range): BP systolic 94–140; BP diastolic 44–62
--- NOTE | 2020-05-22 | NUR ---
PT RESTING IN BED, NO S/S OF DISTRESS AT THIS TIME. SAFETY PRECAUTIONS IN PLACE. WILL CONTINUE TO MONITOR.
--- NOTE | 2020-05-22 04:05 | NUR ---
PT SITTING AT THE SIDE OF THE BED, ALERT AND ORIENTED. RESPIRATIONS EVEN AND UNLABORED ON RA. WILL CONTINUE TO MONITOR.
[2020-05-22 05:49] LABS: HEMATOCRIT 28.5 % (39.0-50.0); HEMOGLOBIN 8.9 g/dl (14.0-18.0); MEAN CELL VOLUME 105.6 fL CALC (80.0-100.0); MEAN CORPUSCULAR HGB CONC 31.2 g/dL CAL (32.0-36.0); RED BLOOD COUNT 2.7 mill/uL (4.70-6.10); RED CELL DISTRI WIDTH 14.4 % (11.5-15.5)
[2020-05-22 06:18] LABS: ANION GAP 8 (6-22 (CALC)); BUN 16 mg/dL (8-23); BUN/CREATININE RATIO 15 (12-20 (CALC)); CARBON DIOXIDE 26 mmol/l (22-30); CHLORIDE 105 mmol/l (95-108); CREATININE 1.1 mg/dL (0.7-1.3); GFR > 60 ML/MIN (>=60 (CALC)); GFR FOR AFR.AMER. > 60 ML/MIN (>=60 (CALC)); POTASSIUM 4.3 mmol/l (3.5-5.1); SODIUM 135 mmol/l (137-146)
--- NOTE | 2020-05-22 07:00 | NUR ---
REPORT RECEIVED FROM ESVIN DODSON.
--- NOTE | 2020-05-22 07:55 | NUR ---
PT RESTING AT BEDSIDE EATING BREAKFAST,A&O X3;VS OBTAINED AND ASSESSMENT COMPLETED;PT DENIES ANY CURRENT PAIN OR DISCOMFORTS,PAIN SCALE AND REPORTING EDUCATED;RESPIRATIONS EVEN AND UNLABORED ON RA,COARSE/DIMINISHED LUNG SOUNDS NOTED;NON-PRODUCTIVE COUGH AT TIMES;ABDOMEN DISTENDED/SOFT ON PALPATION AND ACTIVE IN ALL 4 QUADRANTS;STRONG PEDAL PULSES;SKIN INTACT;TELE MONITORING IN PLACE;#20G TO RAC FLUSHED AND PATENT,SITE APPEARS HEALTHY;NICOTINE PATCH APPLIED TO LEFT SHOULDER;PT DENIES ANY ADDITIONAL NEEDS AT THIS TIME AND IS ENCOURAGED TO CALL FOR ASSISTANCE IF NEEDED;FALL PRECAUTIONS REMAINS IN PLACE WITH BED IN THE LOWEST POSITION AND CALL LIGHT IN REACH;WILL CONTINUE TO MONITOR
--- NOTE | 2020-05-22 11:30 | NUR ---
PT RESTING IN SEMI FOWLERS POSITION;RESPIRATIONS EVEN AND UNLABORED ON RA;PT DENIES ANY CURRENT PAIN OR NEEDS;TELE MONITORING IN PLACE;IV SITE REMAINS PATENT;PT MEDICATED WITH MOM AND PRUNE JUICE TO ASSIST IN BOWEL CARE PER REQUEST;PT DENIES ANY ADDITIONAL NEEDS AT THIS TIME AND IS ENCOURAGED TO CALL FOR ASSISTANCE IF NEEDED;FALL PRECAUTIONS REMAIN IN PLACE WITH CALL LIGHT IN REACH;WILL CONTINUE TO MONITOR
--- NOTE | 2020-05-22 15:40 | NUR ---
PT RESTING IN SEMI FOWLERS POSITION;RESPIRATIONS EVEN AND UNLABORED ON RA;PT DENIES ANY CURRENT PAIN OR NEEDS;TELE MONITORING IN PLACE;IV SITE PATENT;ASSESSMENT REMAINS UNCHANGED AT THIS TIME;ENCOURAGED TO CALL FOR ASSISTANCE IF NEEDED;FALL PRECAUTIONS REMAIN IN PLACE WITH CALL LIGHT IN REACH;WILL CONTINUE TO MONITOR
--- NOTE | 2020-05-22 18:35 | NUR ---
PT MEDICATED WITH PRN TYLENOL 650MG PO FOR RIGHT ARM PAIN RATING 5/10 ON THE PAIN SCALE,WILL CONTINUE TO MONITOR FOR EFFECTIVENESS
--- NOTE | 2020-05-22 20:16 | NUR ---
PT RESTING IN BED ALERT AND ORIENTED. RESPIRATIONS EVEN AND UNLABORED ON RA. LUNGS SOUND DIMINISHED. PEDAL PULSES STRONG. PT DENIES ANY PAIN OR DISCOMFORT AT THIS TIME. #20 RAC PATENT AND APPEARS HEALTHY. PT PROVIDED WITH ORANGE JUICE PER REQUEST. SAFETY PRECAUTIONS IN PLACE. WILL CONTINUE TO MONITOR.
--- NOTE | 2020-05-22 23:42 | NUR ---
PT SITTING UP AT THE SIDE OF THE BED. ALERT AND ORIETNED, PT REPORTS FEELING SHORT OF BREATH, ASKING FOR HIS "PUFFER". PT MEDICATED PER EMAR ORDERS. PT PROVIDED WITH SHERBERT AND MONGOLIAN ICE PER REQUEST. CALL TEAGUE WITHIN REACH WILL CONTINUE TO MONITOR.
[2020-05-23 04:05] VITALS: BP 98/43
--- NOTE | 2020-05-23 04:39 | NUR ---
PT RESTING IN BED, NO S/S OF DISTRESS AT THIS TIME. SAFETY PRECAUTIONS IN PLACE. WILL CONTINUE TO MONITOR.
[2020-05-23 08:00] VITALS: BP 155/75
--- NOTE | 2020-05-23 08:00 | NUR ---
ASSESSMENT IS COMPLETED: IV SITE IS FREE FROM REDNESS OR EDEMA. HR IS REG PULSES ARE STRONG X4, ABD IS SOFT WITH ACTIVE BS. BREATH SOUNDS ARE CLEAR BILATERALLY. NO C/O SOB. TELE MONITOR IN PLACE. CONTINUE TO OSBERVE AND MONITOR.
--- NOTE | 2020-05-23 08:15 | NUR ---
11/04 BOTTLES SHOWS GRAM POSITIVE COCCI. CONTACTED DR LYNCH, 1X DOSE OF VANCOMYCIN ORDERED. WILL F/U WITH FINAL RESULTS.
[2020-05-23] MEDS ORDERED: DOXYCYCL HYC100 MG PO (08:54)
[2020-05-23] MEDS ORDERED: TAMSULOSIN HCL0.4 MG PO (08:54)
--- NOTE | 2020-05-23 09:15 | NUR ---
pt transported to have a chest xray completed. via wc with staff. at 0920 pt returned via wc and then abt was started.
[2020-05-23 10:50] VITALS: BP 104/51
--- NOTE | 2020-05-23 11:30 | NUR ---
LAB DRAWN FOR TESTING. INFORMED PT OF THE NEED TO DO FURHTER TESTING BEFORE GOING HOME. VERBALIZED UNDERSTANDING/.
[2020-05-23 11:35] LABS: ALBUMIN 3.4 g/dL (3.2-5.0); BUN 17 mg/dL (8-23); CARBON DIOXIDE 25 mmol/l (22-30); CHLORIDE 106 mmol/l (95-108); GFR > 60 ML/MIN (>=60 (CALC)); GFR FOR AFR.AMER. > 60 ML/MIN (>=60 (CALC)); POTASSIUM 4.4 mmol/l (3.5-5.1); SODIUM 135 mmol/l (137-146)
--- NOTE | 2020-05-23 12:00 | NUR ---
PT IS RELAXING IN BED WITH NO DISTRESS NOTED. IV SITE IS FREE FROM REDNESS OR EDEMA.
--- NOTE | 2020-05-23 13:30 | NUR ---
pt transported to have a cta complted via wc with staff. returned at 1400 via wc with staff. waiting to go home.
[2020-05-23 14:50] VITALS: BP 105/50
--- NOTE | 2020-05-23 16:00 | NUR ---
PT HAS BEEN RESTING IN BED WITH EYES CLOSED. NO DISTRESS NOTED. IV SITE IS FREE FROM REDNESS OR EDEMA.
--- NOTE | 2020-05-23 17:00 | NUR ---
IV SITE AND TELE MONITOR DISCONITNUED ON PT DUE TO BEING DISCHARGED.
--- NOTE | 2020-05-23 17:40 | NUR ---
PT RECIEVED DISCHARGE INSTRUCITONS AND VERBALIZED UNDERSTANDING. EXPLANED ABOUT [facility] , MUST CALL [facility] AND GIVE THE FAX NUMBER. THEN QUESTIONED ABOUT HOW HIS BILL WOULD BE SUBMITTED. EXPLAINED HE NEEDS TO SPEAK TO BILLING. VERBALIZED UNDERSTANDING. FRIEND MET US DOWNSTAIRS WITH SHORTS AND THE KEYS FOR THE PT. Discharge instructions given. Patient verbalizes understanding of same. Discharged in stable condition via Wheelchair to Home with *Other. All belongings sent with pt.SELF WIHT FRIEND FOLLOWING.
--- NOTE | 2020-05-26 08:30 | NUR ---
FINAL BLOOD CULTURE RESULTS CALLED TO . CONTAMINANT NO CHNAGES NEEDED.
== END 2020-05-23 17:32 | disposition home or self-care (01) | DRG 194 ==
LOC: ED 15:52 → ED-I 19:22 → ED 19:35 → ED-I 19:36 → MS2 19:36
PROVIDERS: Emergency Medicine; Nurse Practitioner; ADMIT Internal Medicine; ATTEND Internal Medicine
PROC: 0W9B3ZZ Drainage of Left Pleural Cavity, Percutaneous Approach (ICD-10-PCS; principal; 2020-05-21)
DX: J18.9 Pneumonia, unspecified organism (principal); J90 Pleural effusion, not elsewhere classified; R78.81 Bacteremia; R91.8 Other nonspecific abnormal finding of lung field; I10 Essential (primary) hypertension; I25.10 Atherosclerotic heart disease of native coronary artery without angina pectoris; R32 Unspecified urinary incontinence; I73.9 Peripheral vascular disease, unspecified; I48.91 Unspecified atrial fibrillation; F17.210 Nicotine dependence, cigarettes, uncomplicated; Z95.1 Presence of aortocoronary bypass graft; Z95.0 Presence of cardiac pacemaker; Z20.828 Contact with and (suspected) exposure to other viral communicable diseases
CPT/HCPCS: G0378; J3370; Q9967

== ENCOUNTER 2020-07-09 08:16 | Inpatient (IN) | payer OTHER, MEDICARE, MEDICAID ==
[~2020-07-09] VITALS: Ht 175.3 cm; Wt 90.3 kg
[~2020-07-09 08:16] MED LIST changes: +DOXYCYCL HYC100 MG PO; +TAMSULOSIN HCL0.4 MG PO; +VITAMIN D PO
--- NOTE | 2020-07-09 08:20 | NUR ---
PATIENT AMBULATED TO ROOM WITH STEADY GAIT AND PHYSICIAN NOTIFIED OF PATIENT STATUS
[2020-07-09 09:29] LABS: GFR > 60 ML/MIN (>=60 (CALC)); GFR FOR AFR.AMER. > 60 ML/MIN (>=60 (CALC))
[2020-07-09 09:30] LABS: HEMATOCRIT 28.1 % (39.0-50.0); HEMOGLOBIN 8.7 g/dl (14.0-18.0); IMMATURE GRANULOCYTES 0.4 % (0.0-5.0); MEAN CELL VOLUME 106.4 fL CALC (80.0-100.0); NEUT# 4.05 thou/uL (1.82-7.42); RED BLOOD COUNT 2.64 mill/uL (4.70-6.10); RED CELL DISTRI WIDTH 15.3 % (11.5-15.5)
--- NOTE | 2020-07-09 09:30 | NUR ---
PT RESTING IN NO DISTRESS. WET COUGH NOTED. VSS. PT PLEASANT AND CONVERSIVE
[2020-07-09 09:50] LABS: C-REACTIVE PROTEIN 3.4 mg/dL (0-0.9)
[2020-07-09 09:55] LABS: ALBUMIN 3.7 g/dL (3.2-5.0); ALKALINE PHOSPHATASE 76 u/l (38-126); ANION GAP 11 (6-22 (CALC)); BILIRUBIN, TOTAL 0.8 mg/dL (0.0-1.4); BUN 13 mg/dL (8-23); BUN/CREATININE RATIO 14 (12-20 (CALC)); CARBON DIOXIDE 27 mmol/l (22-30); CHLORIDE 103 mmol/l (95-108); CREATININE 0.9 mg/dL (0.7-1.3); GFR > 60 ML/MIN (>=60 (CALC)); GFR FOR AFR.AMER. > 60 ML/MIN (>=60 (CALC)); POTASSIUM 4.5 mmol/l (3.5-5.1); SGOT/AST 25 u/l (19-48); SODIUM 136 mmol/l (137-146); TOTAL PROTEIN 6.3 g/dL (6.3-8.2)
--- NOTE | 2020-07-09 10:40 | NUR ---
NOTED O2 SAT 88%, RESP EVEN AND UNLABORED. O2 APPLIED AND O2 SAT 97%, EDP UPDATED AND NEW ORDERS RECEIVED
--- NOTE | 2020-07-09 11:40 | NUR ---
PT RESTING IN NO DISTRESSS, IV ABT INFUSING. PT RESP EVEN AND UNLABORED
--- NOTE | 2020-07-09 12:30 | NUR ---
PT PLEASANT AND COOPERATIVE. NO RESP DISTRESS.VSS
--- NOTE | 2020-07-09 13:30 | NUR ---
PT UPDATED ON POC. RESP EVEN AND UNLABORED.
--- NOTE | 2020-07-09 14:02 | NUR ---
CALLED REPORT TO LESVIA STRICKLAND RN
--- NOTE | 2020-07-09 14:12 | NUR ---
PT ARRIVED TO UNIT VIA WHEELCHAIR WITH ER STAFF; ALERT AND ORIENTED. AMBULATED TO BED WITH STEADY GAIT. DENIES PAIN UPON ARRIVAL; RESPIRATIONS SHALLOW; EVEN AND UNLABORED ON ROOM AIR; EXERTIONAL SOB. SPO2 95%; VSS. ORIENTED TO ROOM AND CALL LIGHT SYSTEM. PLAN OF CARE REVIEWED. PT ENCOURAGED TO VEBRALIZE CONCERNS. STATES UNDERSTANDING. SAFETY MEASURES IN PLACE. CALL LIGHT WITHIN REACH.
--- NOTE | 2020-07-09 14:25 | NUR ---
TRANSPORTED TO [facility] ON TELE IN NO DISTRESS
[2020-07-09 14:30] VITALS: BP 141/60
--- NOTE | 2020-07-09 15:15 | NUR ---
ASSESSMENT COMPLETED. PT PLACED ON AIRBORNE/CONTACT PRECAUTIONS PENDING COVID SWAB RESULTS. IV SITE TO RAC APPEARS HEALTHY AND FLUSHES; LASIX GIVEN AT THIS TIME. TURKEY SANDWHICH PROVIDED PER REQUEST. PT AMBULATES WITH WALKER AT HOME; EDUCATED ON FALL RISK AND SAFETY. HAS URINARY STRESS INCONTINENCE; NOTIFIED THAT WE NEED A URINARY SPECIMEN.
--- NOTE | 2020-07-09 16:40 | NUR ---
URINE SPECIMEN COLLECTED AND SENT TO LAB.
[2020-07-09 16:46] LABS: URINE BILIRUBIN - DIPSTICK NEGATIVE (NEGATIVE); URINE BLOOD DIPSTICK NEGATIVE (NEGATIVE); URINE COLOR YELLOW; URINE GLUCOSE - DIPSTICK NEGATIVE (NEGATIVE); URINE KETONE NEGATIVE (NEGATIVE); URINE LEUK ESTERASE NEGATIVE (NEGATIVE); URINE NITRITE - DIPSTICK NEGATIVE (Negative); URINE PH 6.5 (4.5-8.0); URINE PROTEIN - DIPSTICK NEGATIVE (NEG-TRACE); URINE SPECIFIC GRAVITY <=1.005; URINE UROBILINOGEN - DIPSTICK 0.2 E.U./dL (0.2)
--- NOTE | 2020-07-09 17:15 | NUR ---
DR. DUMAS AT [facility] BEDSIDE FOR PULMONOLOGY CONSULT.
[2020-07-09 19:00] VITALS: BP 125/51
--- NOTE | 2020-07-09 20:00 | NUR ---
ED CALLED TO REPORT DIFFICULTY READING BAND SALVAGER. PT ASSESSED, LEAD PAD TO TELE MONITOR REPLACED, ICECREAM AND JUICE PROVIDED PER REQUEST. NO S/O DISTRESS NOTED. PT LEFT SITTING UP ON SIDE OF THE BED WATCHING NEWS, TALKING ABOUT THE POLITICS AND EATING ICECREAM. ENCOURAGED PT TO CALL IF ANY NEEDS ARISE, CALL LIGHT AT SIDE WITHIN REACH.
--- NOTE | 2020-07-09 20:26 | NUR ---
REPORT RECEIVED FROM ESVIN LAKHANI. PT RESTING IN BED SUPINE; ASSESSMENT AND VITALS COMPLETE ALERT AND ORIENTED. PT DENIES PAIN. RESPIRATIONS EVEN AND UNLABORED ON ROOM AIR AT REST; PT STATES THAT HE HAS SOB UPON EXERTION. TELEMENTRY IN PLACE IN NSR WITH PVCS; AIRBORNE/CONTACT PRECATIONS PENDING COVIS SWAB RESULT. PLAN OF CARE REVIEWED. PT ENCOURAGED TO VERBALIZE CONCERNS. STATES UNDERSTANDING. SAFETY MEASURES IN PLACE. CALL LIGHT WITHIN REACH.
--- NOTE | 2020-07-09 20:29 | NUR ---
PT STATES THAT FAMILY MEMBER WILL BRING [facility] TO THE [facility]OS[facility] TOMORROW.
[2020-07-10] VITALS: BP 120/63
--- NOTE | 2020-07-10 01:16 | NUR ---
PHYSICAL ASSESSMNET UNCHANGED FROM BEGINNING OF SHIFT. PT DENIES NEEDS AT THIS TIME. ITEMS REMAIN WITHIN REACH , BED LOCKED IN LOW POSITION W/BEDRAILS UP. CALL TEAGUE REMAINS WITHIN REACH; PT AGREES TO CALL FOR ANY NEEDS.
--- NOTE | 2020-07-10 03:57 | NUR ---
PT RESTING IN SUPINE POSITION. VITALS TAKEN. TELE IN PLACE. IV APPEARS HEALTHY WITH NO REDDENING OR SWELLING. NO DISCOMFORT OR NEEDS EXPRESSED. CALL TEAGUE WITHIN REACH; WILL CONTINUE TO MONITOR.
[2020-07-10 04:04] VITALS: BP 108/62
[2020-07-10 05:22] LABS: HEMATOCRIT 27.8 % (39.0-50.0); HEMOGLOBIN 8.7 g/dl (14.0-18.0); IMMATURE GRANULOCYTES 0.6 % (0.0-5.0); MEAN CELL VOLUME 106.1 fL CALC (80.0-100.0); MEAN CORPUSCULAR HGB 33.2 pG CALC (26.0-32.0); MEAN CORPUSCULAR HGB CONC 31.3 g/dL CAL (32.0-36.0); NEUT# 3.89 thou/uL (1.82-7.42); RED BLOOD COUNT 2.62 mill/uL (4.70-6.10); RED CELL DISTRI WIDTH 15.1 % (11.5-15.5)
[2020-07-10 05:55] LABS: ALBUMIN 3.7 g/dL (3.2-5.0); ALKALINE PHOSPHATASE 72 u/l (38-126); ANION GAP 12 (6-22 (CALC)); BILIRUBIN, TOTAL 0.6 mg/dL (0.0-1.4); BUN 19 mg/dL (8-23); BUN/CREATININE RATIO 18 (12-20 (CALC)); C-REACTIVE PROTEIN 5.9 mg/dL (0-0.9); CARBON DIOXIDE 27 mmol/l (22-30); CHLORIDE 103 mmol/l (95-108); GFR > 60 ML/MIN (>=60 (CALC)); GFR FOR AFR.AMER. > 60 ML/MIN (>=60 (CALC)); POTASSIUM 4.5 mmol/l (3.5-5.1); SGOT/AST 22 u/l (19-48); SODIUM 137 mmol/l (137-146); TOTAL PROTEIN 6.3 g/dL (6.3-8.2)
--- NOTE | 2020-07-10 08:00 | NUR ---
REPORT RECEIVED FROM ESVIN GARZA. PT SITTING UP ON EDGE OF BED EATING BREAKFAST; ALERT AND ORIENTED. DENIES PAIN. RESPIRATIONS EVEN AND UNLABORED ON ROOM AIR; 96% SPO2. DENIES SOB OR NAUSEA. VSS. TELE ON. IV SITE APPEARS HEALTHY AND FLUSHES. PLAN OF CARE REVIEWED. PT ENCOURAGED TO VERBALIZE CONCERNS. STATES UNDERSTANDING. SAFETY MEASURES IN PLACE. CALL LIGHT WITHIN REACH.
[2020-07-10 08:11] VITALS: BP 135/64
--- NOTE | 2020-07-10 09:15 | NUR ---
ROCEPHIN INFUSING. PT NOW WITH PRODUCTIVE COUGH; THINK YELLOW SPUTUM IN LARGE AMOUNTS. REQUESTING MORE NAPKINS AND ICE WATER. NAPKINS PROVIDED AND PT GIVEN WATER WITH INSTRUCTIONS TO LIMIT ORAL INTAKE; STATES UNDERSTANDING.
--- NOTE | 2020-07-10 09:55 | NUR ---
PT C/O NEW 10 LEFT ARM PAIN; FACE IS RED AND PT IS VERY ANXIOUS. REQUESTS A NITRO; REPORTS THAT HE TAKES THEM AT HOME AND NEEDS ONE IMMEDIATELY. PT DEMANDING THAT HE NEEDS THE NITRO RIGHT THIS MINUTE. EXPLAINED THAT NITRO WOULD BE GIVEN QUICKLY POSSIBLE AFTER NOTIFYING THE DR ON THE UNIT AND OBTAINING BLOOD PRESSURE. PT NOT SATISFIED WITH NECESSARY PROTOCOL AND BECAME AGITIATED. PT ENCOURAGED TO RELAX AND VERBAL CUES GIVEN WITH NO EFFECT.
--- NOTE | 2020-07-10 09:58 | NUR ---
NITRO SL GIVEN AT THIS TIME. PT REMAINS CANTANKEROUS. INFORMED THAT NECESSARY STEPS TO OBTAIN MEDICATION TOOK 5 MINUTES SINCE HE REQUESTED IT. PT DOES CONFIRM THAT HIS LEFT ARM PAIN IS SUBSIDING. WILL CONTINUE TO MONITOR.
--- NOTE | 2020-07-10 10:56 | NUR ---
PT DENIES ANY PAIN AT THIS TIME; REPORT THAT ARM PAIN IS COMPLETELY GONE AFTER NITRO. VSS.
[2020-07-10 11:48] VITALS: BP 96/54
[2020-07-10 16:00] VITALS: BP 133/64
--- NOTE | 2020-07-10 16:50 | NUR ---
[facility] CALLED WITH BED ASSIGNMENT; [id number]. NURSE TO NURSE REPORT #[phone].
--- NOTE | 2020-07-10 17:00 | NUR ---
PT NOW ON STANDARD PRECAUTIONS. [facility] NOTIFIED.
--- NOTE | 2020-07-10 17:45 | NUR ---
[facility] UNIT.
--- NOTE | 2020-07-10 17:54 | NUR ---
Discharge instructions given. Patient verbalizes understanding of same. Discharged in stable condition via [facility] to [facility] with staff. All belongings sent with pt.
--- NOTE | 2020-07-10 18:04 | NUR ---
REPORT GIVEN TO CHARBEL AT [facility].
== END 2020-07-10 17:54 | disposition short-term general hospital (02) | DRG 194 ==
LOC: ED 08:16 → ED-I 11:26 → ED 11:37 → MS2 11:38
PROVIDERS: Family Medicine; Nurse Practitioner; ADMIT Internal Medicine; ATTEND Internal Medicine
DX: J18.9 Pneumonia, unspecified organism (principal); J44.0 Chronic obstructive pulmonary disease with (acute) lower respiratory infection; J90 Pleural effusion, not elsewhere classified; I10 Essential (primary) hypertension; I25.10 Atherosclerotic heart disease of native coronary artery without angina pectoris; D50.9 Iron deficiency anemia, unspecified; E03.9 Hypothyroidism, unspecified; F32.9 Major depressive disorder, single episode, unspecified; E78.5 Hyperlipidemia, unspecified; I73.9 Peripheral vascular disease, unspecified; K21.9 Gastro-esophageal reflux disease without esophagitis; I51.7 Cardiomegaly; N40.0 Benign prostatic hyperplasia without lower urinary tract symptoms; Z95.0 Presence of cardiac pacemaker; Z95.1 Presence of aortocoronary bypass graft; Z87.891 Personal history of nicotine dependence; Z95.5 Presence of coronary angioplasty implant and graft; Z95.820 Peripheral vascular angioplasty status with implants and grafts
CPT/HCPCS: J1650; Q9967

== ENCOUNTER 2020-11-26 15:08 | Emergency (ER) | payer MEDICARE ==
[~2020-11-26] VITALS: Ht 175.3 cm; Wt 87.2 kg
[2020-11-26] MEDS ORDERED: TRAMADOL HYDROC50 MG PO (17:12)
[2020-11-26 18:55] VITALS: BP 120/58
== END 2020-11-26 18:55 | disposition home or self-care (01) ==
LOC: ED 15:08
DX: S41.111A Laceration without foreign body of right upper arm, initial encounter (principal); S93.402A Sprain of unspecified ligament of left ankle, initial encounter; S80.02XA Contusion of left knee, initial encounter; I10 Essential (primary) hypertension; I73.9 Peripheral vascular disease, unspecified; W01.0XXA Fall on same level from slipping, tripping and stumbling without subsequent striking against object, initial encounter; Y92.009 Unspecified place in unspecified non-institutional (private) residence as the place of occurrence of the external cause; Z95.5 Presence of coronary angioplasty implant and graft; Z95.1 Presence of aortocoronary bypass graft; Z95.0 Presence of cardiac pacemaker

== ENCOUNTER 2021-11-22 09:51 | Observation (INO) | payer OTHER ==
[~2021-11-22] VITALS: Ht 175.3 cm; Wt 81.8 kg
[~2021-11-22 09:51] MED LIST changes: +TRAMADOL HYDROC50 MG PO
[2021-11-22 10:55] LABS: IMMATURE GRANULOCYTES 0.3 % (0.0-5.0); MEAN CORPUSCULAR HGB 32.8 pG CALC (26.0-32.0); MEAN CORPUSCULAR HGB CONC 30.2 g/dL CAL (32.0-36.0); NEUT# 1.74 thou/uL (1.82-7.42); RED BLOOD COUNT 3.44 mill/uL (4.70-6.10)
[2021-11-22 11:02] LABS: HEMATOCRIT 37.4 % (39.0-50.0); HEMOGLOBIN 11.3 g/dl (14.0-18.0); MEAN CELL VOLUME 108.7 fL CALC (80.0-100.0)
[2021-11-22 11:21] LABS: ALBUMIN 4.1 g/dL (3.2-5.0); ALKALINE PHOSPHATASE 82 u/l (38-126); ANION GAP 12 (6-22 (CALC)); BUN 27 mg/dL (8-23); BUN/CREATININE RATIO 14 (12-20 (CALC)); CARBON DIOXIDE 30 mmol/l (22-30); CHLORIDE 99 mmol/l (95-108); ETHYL ALCOHOL 0 mg/dl (0-30); GFR 32 ML/MIN (>=60 (CALC)); GFR FOR AFR.AMER. 39 ML/MIN (>=60 (CALC)); LIPASE 61 u/l (23-300); MAGNESIUM 2.1 mg/dL (1.6-2.3); POTASSIUM 4.2 mmol/l (3.5-5.1); SGOT/AST 35 u/l (19-48); SODIUM 137 mmol/l (137-146); TOTAL PROTEIN 7.4 g/dL (6.3-8.2)
[2021-11-22 11:23] LABS: ACT PARTIAL THROMBO TIME 31.4 SECONDS (20.0-32.5); PROTHROMBIN TIME 10.7 SECONDS (9.0-12.5)
[2021-11-22 11:24] LABS: BILIRUBIN, TOTAL 0.7 mg/dL (0.0-1.4)
[2021-11-22 12:30] LABS: URINE BILIRUBIN - DIPSTICK NEGATIVE (NEGATIVE); URINE BLOOD DIPSTICK NEGATIVE (NEGATIVE); URINE COLOR YELLOW; URINE GLUCOSE - DIPSTICK NEGATIVE (NEGATIVE); URINE KETONE NEGATIVE (NEGATIVE); URINE LEUK ESTERASE NEGATIVE (NEGATIVE); URINE PH 6.5 (4.5-8.0); URINE PROTEIN - DIPSTICK NEGATIVE (NEG-TRACE)
[2021-11-22 12:31] LABS: URINE NITRITE - DIPSTICK NEGATIVE (Negative)
--- NOTE | 2021-11-22 12:41 | NUR ---
RETURN CALL TO PATIENT'S FAMILY BETTY FOR UPDATE.
--- NOTE | 2021-11-22 14:00 | NUR ---
TELEPHONE CALL FROM DAUGHTER FOR UPDATE, TELEPHONE TAKEN TO PATIENT FOR UPDATE
--- NOTE | 2021-11-22 14:34 | NUR ---
ATTEMPTED TO CALL ER FOR REPORT. ESVIN JACOBS BUSY AT THE MOMENT. STATES THEYLL CALL BACK.
--- NOTE | 2021-11-22 15:04 | NUR ---
REPORT RECIEVED FROM ESVIN JACOBS AT THIS TIME.
--- NOTE | 2021-11-22 15:09 | NUR ---
REPORT TO NURSE LI MCALLISTER
--- NOTE | 2021-11-22 17:18 | NUR ---
PT WITH FAMILY MEMBER AT BEDSIDE. STATES NO PAIN AT THIS TIME. TELE MONITOR IS IN PLACE. FALL/SAFETY PRECAUTIONS IN PLACE. IV PATENT. NS INFUSING WITH NO COMPLICATIONS. CALL LIGHT WITHIN REACH
[2021-11-22 17:40] VITALS: BP 102/65
[2021-11-22 19:00] VITALS: BP 101/61
--- NOTE | 2021-11-22 20:09 | NUR ---
PATIENT RESTING IN BED POSITIONED ON LEFT SIDE-AWAKE ALERT AND ORIENTEDX3. NO COMPLAINTS AT THIS TIME. TELE MONITOR IN PLACE WITH LAST READING BEING PACED-60'S. IVF NS PATENT AND INFUSING VIA LEFT WRIST AT 100CC/HR. SITE APPEARS HEALTHY AT THIS TIME. SAFETY PRECAUTIONS REINFORCED. CALL LIGHT IN REACH. WILL CONT TO MONITOR.
--- NOTE | 2021-11-22 21:54 | NUR ---
PATIENT RESTING IN BED AT THIS TIME-STATES THAT HE WAS JUST UP TO THE BR TO VOID WITH ASSIST OF THAI MASSEUR AND NOW BACK IN BED. DENIES ANY DIFFICULTY WITH URINATION. STATES THAT HIS LAST BM WAS YESTERDAY. ABD IS SOFT WITH BS+. NO PERIPHERAL EDEMA NOTED. NON-PRODUCTIVE COUGH NOTED-PATIENT IS SMOKER WITH NICOTENE PATCH IN PLACE TO LEFT ARM. IVF PATENT AND INFUSING TO LEFT WRIST AT 100CC/HR. SITE IS HEALTHY AT THIS TIME. SAFETY PRECAUTIONS REINFORCED. CALL LIGHT IN REACH. WILL CONT TO MONITOR.
[2021-11-23] VITALS (9 sets, daily range): BP systolic 101–122; BP diastolic 60–70
--- NOTE | 2021-11-23 | NUR ---
PATIENT RESTING IN BED AT THIS TIME-MEDICATED WITH VENTOLIN INHALER ORDERED PRN. TELE MONITOR REMAINS IN PLACE. IVF NS PATENT AND INFUSING VIA LEFT WRIST SITE AT 100CC/HR. SAFETY PRECAUTIONS REINFORCED. CALL LIGHT IN REACH. WILL CONT TO MONITOR.
--- NOTE | 2021-11-23 01:04 | NUR ---
PATIENT CALLED TO SEE NURSE AND RESPONDED TO ROOM-PT STATES THAT HE FEELS LIKE HE IS SPINNING AND FEELS DIZZY-VS TAKEN AND BP-110/66, HR-69 AND O2 SAT IS 88% ON ROOM AIR. O2 VIA NASAL CANNULA APPLIED AT 2LPM AND O2 SAT INCREASED TO 94%. PATIENT NOW WITH PRODUCTIVE COUGH WITH WHITE SECREATIONS. SAFETY PRECAUTIONS REINFORCED. CALL LIGHT IN REACH. WILL CONT TO MONITOR.
--- NOTE | 2021-11-23 04:14 | NUR ---
PATIENT RESTING IN BED WITH O2 VIA NASAL CANNULA IN PLACE-O2 SAT IS 96% AT THIS TIME. IVF NS PATENT AND INFUSING VIA LEFT WRIST SITE AT 100CC/HR. SITE REMAINS HEALTHY AT THIS TIME. RESPS ARE EVEN AND UNLABORED AT THIS TIME. SAFETY PRECAUTIONS REINFORCED. CALL LIGHT IN REACH. WILL CONT TO MONITOR.
[2021-11-23 05:33] LABS: HEMATOCRIT 36.5 % (39.0-50.0); HEMOGLOBIN 11.1 g/dl (14.0-18.0); MEAN CORPUSCULAR HGB 33.1 pG CALC (26.0-32.0); MEAN CORPUSCULAR HGB CONC 30.4 g/dL CAL (32.0-36.0); RED BLOOD COUNT 3.35 mill/uL (4.70-6.10); RED CELL DISTRI WIDTH 15.8 % (11.5-15.5)
[2021-11-23 05:43] LABS: CREATININE 1.5 mg/dL (0.7-1.3); MAGNESIUM 1.9 mg/dL (1.6-2.3); POTASSIUM 4.3 mmol/l (3.5-5.1)
--- NOTE | 2021-11-23 18:48 | NUR ---
NEW IV SITE ESTABLISHED AT RIGHT AC WITH #20 GAUGE ANGIOCATH TOLERATED WELL. GOOD BLOOD RETURN NOTED NO REDNESS OR SWELLING AT SIE. IV SIT AT LEFT HAND DISCONTINUED BY PROTOCOL FOR EMS STARTED IV. CATHETED INTACT NO SWELLING OR BLEEDING NOTED.
--- NOTE | 2021-11-23 19:21 | NUR ---
REPORT RECEIVED BEDSIDE WITH PT AND DAY NURSE. FAMILY AT BEDSIDE X1. PT REQUESTED INHAILER, NO S/O DISTRESS, BUT THIS WAS PROVIDED PER REQUEST AVAILABLE. PT TALKING ON PHONE i LEFT THE ROOM. NC02 IS ON AT THIS TIME.
--- NOTE | 2021-11-23 21:14 | NUR ---
Pt medicated as orders provide. Pt was assisted to restroom and back to the bed. IVF have also been replenished. Pt denies any other needs of assistance. Call light in hand and assisted replacing oxygen nc.
--- NOTE | 2021-11-24 00:25 | NUR ---
PT CALLED TO REPORT HAVING LOST HIS PILLOW. PT'S PILLOW WAS ON THE FLOOR, NEW PILLOW CASE PROVIDED AND HE WAS ASSISTED AMBULATING TO THE RESTROOM AND BACK TO THE BED, FRESH BED PADS WERE PLACED AND PT ASSISTED WITH OXYGEN PLACEMENT AND BLANKETS. FRESH ICE WATER PROVIDED, SNACK AND HE IS LEFT WATCHING TV WITH NIGHTLIGHTS ON.
[2021-11-24 00:36] VITALS: BP 100/57
--- NOTE | 2021-11-24 03:02 | NUR ---
Pt called for tylenol, provided for generalized aches. He was just assisted by sales and marketing intern to restroom and back to bed. Tv is on, lights are down low, oxygen is on and call light at side.
[2021-11-24 05:19] VITALS: BP 102/59
[2021-11-24 05:46] LABS: HEMATOCRIT 32.9 % (39.0-50.0); MEAN CELL VOLUME 109.3 fL CALC (80.0-100.0); MEAN CORPUSCULAR HGB 33.2 pG CALC (26.0-32.0); MEAN CORPUSCULAR HGB CONC 30.4 g/dL CAL (32.0-36.0); RED BLOOD COUNT 3.01 mill/uL (4.70-6.10)
[2021-11-24 05:54] LABS: BILIRUBIN, TOTAL 0.6 mg/dL (0.0-1.4); CREATININE 1.4 mg/dL (0.7-1.3)
[2021-11-24 06:06] LABS: ALBUMIN 3.2 g/dL (3.2-5.0)
--- NOTE | 2021-11-24 06:17 | NUR ---
I ENTERED THE ROOM TO MEDICATE THE PT AND FOUND A LARGE POOL OF BLOOD ON HIS PILLOW AND ON THE PT'S HEAD. AFTER TALKING TO HIM AND INSPECTING IT WAS DISCOVERED THAT HIS IV WAS DISLODGED AND HAD BEEN LEAKING/BLEEDING IN HIS HAIR AND ON HIS PILLOW. ATTEMPTS TO CLEAN PT UP AND CHANGE BEDDING WERE MADE, HE ASKED TO GET A SHOWER. ISRRAEL'S X2 ARE IN WITH THE PT AT THIS TIME TO ASSIST HIM SHOWERING AND LINEN CHANGE.
[2021-11-24] MEDS ORDERED: VENTOLIN HFA IN (09:11)
[2021-11-24] MEDS ORDERED: BUPROPION HYDR100 MG PO (09:12)
[2021-11-24] MEDS ORDERED: D32000 UNIT PO (09:13)
[2021-11-24] MEDS ORDERED: B-121000 MC6 PO (09:15)
[2021-11-24] MEDS ORDERED: FINASTERIDE5 MG PO (09:15)
[2021-11-24] MEDS ORDERED: FUROSEMIDE20 MG PO (09:16)
[2021-11-24] MEDS ORDERED: LISINOPRIL2.5 MG PO (09:16)
[2021-11-24] MEDS ORDERED: SYNTHROID175 MCG PO (09:16)
[2021-11-24] MEDS ORDERED: TOPROL XL25 MG PO (09:17)
[2021-11-24] MEDS ORDERED: NITROSTAT0.4 MG SL (09:18)
[2021-11-24] MEDS ORDERED: OMEPRAZOLE DR20 MG PO (09:19)
[2021-11-24] MEDS ORDERED: KLOR-CON M2020 MEQ PO (09:19)
[2021-11-24] MEDS ORDERED: TAMSULOSIN0.4 MG PO (09:20)
[2021-11-24] MEDS ORDERED: SIMVASTATIN40 MG PO (09:20)
--- NOTE | 2021-11-24 10:56 | NUR ---
PT AWAKE, ALERT, ORIENTED X 3. PT STATES THAT HE FEELS GREAT, HOPES FOR DISCHARGE TODAY.
[2021-11-24] MEDS ORDERED: LEVOTHYROXIN100 MC1 PO (11:46)
--- NOTE | 2021-11-24 13:42 | NUR ---
PT HAS BEEN DISCHARGED TO HOME. PT VERBALIZED UNDERSTANDING OF DC INSTRUCTIONS, TAKEN BY WHEELCHAIR TO LOBBY. PT LEAVES [facility] IN STABLE CONDITION.
== END 2021-11-24 12:38 | disposition home health service (06) | DRG 641 ==
LOC: ED 09:51 → ED-I 12:20 → ED 12:44 → MS2 12:45
PROVIDERS: Nurse Practitioner Family; ADMIT Hospitalist; ATTEND Hospitalist
DX: E86.0 Dehydration (principal); N17.9 Acute kidney failure, unspecified; J98.11 Atelectasis; I95.1 Orthostatic hypotension; I10 Essential (primary) hypertension; J44.9 Chronic obstructive pulmonary disease, unspecified; I25.10 Atherosclerotic heart disease of native coronary artery without angina pectoris; I73.9 Peripheral vascular disease, unspecified; K21.9 Gastro-esophageal reflux disease without esophagitis; E78.5 Hyperlipidemia, unspecified; E03.9 Hypothyroidism, unspecified; F32.A Depression, unspecified; N40.0 Benign prostatic hyperplasia without lower urinary tract symptoms; Z95.1 Presence of aortocoronary bypass graft; Z95.5 Presence of coronary angioplasty implant and graft; Z95.0 Presence of cardiac pacemaker; Z20.822 Contact with and (suspected) exposure to COVID-19; Z87.891 Personal history of nicotine dependence; Z95.820 Peripheral vascular angioplasty status with implants and grafts

== ENCOUNTER 2021-12-21 16:57 | Emergency (ER) | payer OTHER, MEDICARE ==
[~2021-12-21] VITALS: Ht 175.3 cm; Wt 87.0 kg
[~2021-12-21 16:57] MED LIST changes: +B-121000 MC6 PO; +BUPROPION HYDR100 MG PO; +D32000 UNIT PO; +FINASTERIDE5 MG PO; +FUROSEMIDE20 MG PO; +KLOR-CON M2020 MEQ PO; +LEVOTHYROXIN100 MC1 PO; +LISINOPRIL2.5 MG PO; +OMEPRAZOLE DR20 MG PO; +SIMVASTATIN40 MG PO; +SYNTHROID175 MCG PO; +TAMSULOSIN0.4 MG PO; +TOPROL XL25 MG PO; +VENTOLIN HFA IN
[2021-12-21 17:23] LABS: HEMATOCRIT 31.9 % (39.0-50.0); HEMOGLOBIN 9.7 g/dl (14.0-18.0); IMMATURE GRANULOCYTES 0.6 % (0.0-5.0); MEAN CELL VOLUME 111.9 fL CALC (80.0-100.0); MEAN CORPUSCULAR HGB CONC 30.4 g/dL CAL (32.0-36.0); NEUT# 2.23 thou/uL (1.82-7.42); RED BLOOD COUNT 2.85 mill/uL (4.70-6.10); RED CELL DISTRI WIDTH 18.2 % (11.5-15.5)
[2021-12-21 17:25] LABS: GFR > 60 ML/MIN (>=60 (CALC)); GFR FOR AFR.AMER. > 60 ML/MIN (>=60 (CALC))
[2021-12-21 17:36] LABS: ALKALINE PHOSPHATASE 93 u/l (38-126); ANION GAP 11 (6-22 (CALC)); BILIRUBIN, TOTAL 0.7 mg/dL (0.0-1.4); BUN 15 mg/dL (8-23); BUN/CREATININE RATIO 14 (12-20 (CALC)); CARBON DIOXIDE 29 mmol/l (22-30); CHLORIDE 106 mmol/l (95-108); CREATININE 1.1 mg/dL (0.7-1.3); GFR > 60 ML/MIN (>=60 (CALC)); GFR FOR AFR.AMER. > 60 ML/MIN (>=60 (CALC)); SGOT/AST 36 u/l (19-48); SODIUM 142 mmol/l (137-146)
[2021-12-21 17:37] LABS: ALBUMIN 3.9 g/dL (3.2-5.0)
[2021-12-21] MEDS ORDERED: PREVACID30 M3 PO (21:25)
[2021-12-21] MEDS ORDERED: ONDANSETRON4 MG PO (21:25)
[2021-12-21 21:40] VITALS: BP 135/58
== END 2021-12-21 21:40 | disposition home or self-care (01) | DRG 446 ==
LOC: ED 16:57
PROVIDERS: Family Medicine
DX: K80.20 Calculus of gallbladder without cholecystitis without obstruction (principal); I10 Essential (primary) hypertension; F17.200 Nicotine dependence, unspecified, uncomplicated; Z95.0 Presence of cardiac pacemaker; Z20.822 Contact with and (suspected) exposure to COVID-19
CPT/HCPCS: Q9967

== ENCOUNTER 2022-02-18 07:53 | Observation (INO) | payer OTHER, MEDICARE ==
[~2022-02-18] VITALS: Ht 175.3 cm; Wt 85.0 kg
[2022-02-18] VITALS (22 sets, daily range): BP systolic 106–130; BP diastolic 42–97
[~2022-02-18 07:53] MED LIST changes: +ONDANSETRON4 MG PO; +PREVACID30 M3 PO
[2022-02-18 08:38] LABS: HEMATOCRIT 32.2 % (39.0-50.0); HEMOGLOBIN 9.9 g/dl (14.0-18.0); IMMATURE GRANULOCYTES 0.2 % (0.0-5.0); MEAN CORPUSCULAR HGB 37.6 pG CALC (26.0-32.0); MEAN CORPUSCULAR HGB CONC 30.7 g/dL CAL (32.0-36.0); NEUT# 11.18 thou/uL (1.82-7.42); RED BLOOD COUNT 2.63 mill/uL (4.70-6.10); RED CELL DISTRI WIDTH 17.9 % (11.5-15.5)
[2022-02-18 08:39] LABS: MEAN CELL VOLUME 122.4 fL CALC (80.0-100.0)
[2022-02-18 08:40] LABS: ALBUMIN 3.6 g/dL (3.2-5.0); ALKALINE PHOSPHATASE 78 u/l (38-126); ANION GAP 9 (6-22 (CALC)); BUN 22 mg/dL (8-23); BUN/CREATININE RATIO 18 (12-20 (CALC)); CARBON DIOXIDE 25 mmol/l (22-30); CHLORIDE 104 mmol/l (95-108); CREATININE 1.2 mg/dL (0.7-1.3); GFR 58 ML/MIN (>=60 (CALC)); GFR FOR AFR.AMER. > 60 ML/MIN (>=60 (CALC)); LIPASE 23 u/l (23-300); MAGNESIUM 1.9 mg/dL (1.6-2.3); POTASSIUM 4.3 mmol/l (3.5-5.1); SGOT/AST 32 u/l (19-48); SODIUM 134 mmol/l (137-146); TOTAL PROTEIN 6.4 g/dL (6.3-8.2)
[2022-02-18 08:41] LABS: BILIRUBIN, TOTAL 1.5 mg/dL (0.0-1.4)
[2022-02-18 08:46] LABS: ACT PARTIAL THROMBO TIME 28.4 SECONDS (20.0-32.5); INTERNATIONAL NORMALIZED RATIO 1.2 RATIO (0.7-1.3); PROTHROMBIN TIME 12.6 SECONDS (9.0-12.5)
[2022-02-19] VITALS (7 sets, daily range): BP systolic 96–144; BP diastolic 39–68
[2022-02-19 05:29] LABS: HEMATOCRIT 28.9 % (39.0-50.0); HEMOGLOBIN 9.1 g/dl (14.0-18.0); MEAN CELL VOLUME 119.9 fL CALC (80.0-100.0); MEAN CORPUSCULAR HGB 37.8 pG CALC (26.0-32.0); MEAN CORPUSCULAR HGB CONC 31.5 g/dL CAL (32.0-36.0); RED BLOOD COUNT 2.41 mill/uL (4.70-6.10)
[2022-02-19 05:42] LABS: ANION GAP 11 (6-22 (CALC)); BUN 35 mg/dL (8-23); BUN/CREATININE RATIO 32 (12-20 (CALC)); CARBON DIOXIDE 24 mmol/l (22-30); CHLORIDE 104 mmol/l (95-108); CREATININE 1.1 mg/dL (0.7-1.3); GFR > 60 ML/MIN (>=60 (CALC)); GFR FOR AFR.AMER. > 60 ML/MIN (>=60 (CALC)); POTASSIUM 3.7 mmol/l (3.5-5.1); SODIUM 136 mmol/l (137-146)
[2022-02-20 00:02] VITALS: BP 98/46
[2022-02-20 04:22] VITALS: BP 103/52
[2022-02-20 04:54] LABS: HEMATOCRIT 29.1 % (39.0-50.0); MEAN CELL VOLUME 119.3 fL CALC (80.0-100.0); MEAN CORPUSCULAR HGB 36.9 pG CALC (26.0-32.0); MEAN CORPUSCULAR HGB CONC 30.9 g/dL CAL (32.0-36.0); RED BLOOD COUNT 2.44 mill/uL (4.70-6.10); RED CELL DISTRI WIDTH 17.1 % (11.5-15.5)
[2022-02-20 05:02] LABS: BUN 42 mg/dL (8-23); BUN/CREATININE RATIO 37 (12-20 (CALC)); CARBON DIOXIDE 25 mmol/l (22-30); CHLORIDE 107 mmol/l (95-108); CREATININE 1.1 mg/dL (0.7-1.3); GFR > 60 ML/MIN (>=60 (CALC)); GFR FOR AFR.AMER. > 60 ML/MIN (>=60 (CALC)); MAGNESIUM 2.3 mg/dL (1.6-2.3); SODIUM 138 mmol/l (137-146)
[2022-02-20 05:04] LABS: ANION GAP 11 (6-22 (CALC)); POTASSIUM 4.8 mmol/l (3.5-5.1)
[2022-02-20] MEDS ORDERED: PREDNISONE10 MG PO (10:58)
[2022-02-20] MEDS ORDERED: VIBRAMYCIN100 M2 PO (10:59)
[2022-02-20 12:06] VITALS: BP 127/63
[2022-02-20 14:47] VITALS: BP 133/63
== END 2022-02-20 13:46 | disposition home or self-care (01) | DRG 194 ==
LOC: ED 07:53 → ED-I 09:24 → ED 09:34 → MS2 09:35
PROVIDERS: ADMIT Internal Medicine; ATTEND Internal Medicine
DX: J18.9 Pneumonia, unspecified organism (principal); J44.0 Chronic obstructive pulmonary disease with (acute) lower respiratory infection; I13.0 Hypertensive heart and chronic kidney disease with heart failure and stage 1 through stage 4 chronic kidney disease, or unspecified chronic kidney disease; I50.9 Heart failure, unspecified; J44.1 Chronic obstructive pulmonary disease with (acute) exacerbation; N18.9 Chronic kidney disease, unspecified; I25.10 Atherosclerotic heart disease of native coronary artery without angina pectoris; I48.91 Unspecified atrial fibrillation; I73.9 Peripheral vascular disease, unspecified; D64.9 Anemia, unspecified; E03.9 Hypothyroidism, unspecified; F32.A Depression, unspecified; E78.5 Hyperlipidemia, unspecified; N40.0 Benign prostatic hyperplasia without lower urinary tract symptoms; Z95.1 Presence of aortocoronary bypass graft; Z95.0 Presence of cardiac pacemaker; Z95.5 Presence of coronary angioplasty implant and graft; Z95.820 Peripheral vascular angioplasty status with implants and grafts; Z87.891 Personal history of nicotine dependence; Z20.822 Contact with and (suspected) exposure to COVID-19
CPT/HCPCS: G0378

== ENCOUNTER 2022-04-29 15:40 | Emergency (ER) | payer OTHER, MEDICARE ==
[~2022-04-29] VITALS: Ht 175.3 cm; Wt 87.7 kg
[2022-04-29] VITALS (17 sets, daily range): BP systolic 95–133; BP diastolic 38–64
[~2022-04-29 15:40] MED LIST changes: +PREDNISONE10 MG PO; +VIBRAMYCIN100 M2 PO
[2022-04-29 16:12] LABS: HEMOGLOBIN 8.3 g/dl (14.0-18.0); IMMATURE GRANULOCYTES 0.4 % (0.0-5.0); MEAN CELL VOLUME 114.4 fL CALC (80.0-100.0); MEAN CORPUSCULAR HGB 35.2 pG CALC (26.0-32.0); MEAN CORPUSCULAR HGB CONC 30.7 g/dL CAL (32.0-36.0); NEUT# 4.96 thou/uL (1.82-7.42); RED BLOOD COUNT 2.36 mill/uL (4.70-6.10); RED CELL DISTRI WIDTH 14.4 % (11.5-15.5)
[2022-04-29 16:25] LABS: ALBUMIN 3.6 g/dL (3.2-5.0); ANION GAP 12 (6-22 (CALC)); BUN 25 mg/dL (8-23); BUN/CREATININE RATIO 24 (12-20 (CALC)); CARBON DIOXIDE 24 mmol/l (22-30); CHLORIDE 107 mmol/l (95-108); GFR FOR AFR.AMER. > 60 ML/MIN (>=60 (CALC)); GFR OTHER RACES > 60 ML/MIN (>=60 (CALC)); POTASSIUM 4.2 mmol/l (3.5-5.1); SGOT/AST 25 u/l (19-48); SODIUM 138 mmol/l (137-146); TOTAL PROTEIN 6.3 g/dL (6.3-8.2)
[2022-04-29 16:26] LABS: ALKALINE PHOSPHATASE 119 u/l (38-126); BILIRUBIN, TOTAL 0.5 mg/dL (0.0-1.4)
[2022-04-29 18:23] LABS: URINE BILIRUBIN - DIPSTICK NEGATIVE (NEGATIVE); URINE BLOOD DIPSTICK NEGATIVE (NEGATIVE); URINE COLOR YELLOW; URINE GLUCOSE - DIPSTICK NEGATIVE (NEGATIVE); URINE KETONE NEGATIVE (NEGATIVE); URINE LEUK ESTERASE NEGATIVE (NEGATIVE); URINE PH 5.5 (4.5-8.0); URINE PROTEIN - DIPSTICK NEGATIVE (NEG-TRACE); URINE SPECIFIC GRAVITY 1.015; URINE UROBILINOGEN - DIPSTICK 0.2 E.U./dL (0.2)
[2022-04-29 18:24] LABS: URINE NITRITE - DIPSTICK NEGATIVE (Negative)
[2022-04-29] MEDS ORDERED: VIBRAMYCIN100 M2 PO (20:07)
== END 2022-04-29 20:35 | disposition home or self-care (01) | DRG 194 ==
LOC: ED 15:40
PROVIDERS: Family Medicine
DX: J18.9 Pneumonia, unspecified organism (principal); J44.0 Chronic obstructive pulmonary disease with (acute) lower respiratory infection; J44.1 Chronic obstructive pulmonary disease with (acute) exacerbation; I10 Essential (primary) hypertension; F17.200 Nicotine dependence, unspecified, uncomplicated; Z95.0 Presence of cardiac pacemaker; Z20.822 Contact with and (suspected) exposure to COVID-19
CPT/HCPCS: Q9967

== ENCOUNTER 2022-06-15 19:35 | Emergency (ER) | payer OTHER, MEDICARE ==
[2022-06-15] VITALS (17 sets, daily range): BP systolic 78–121; BP diastolic 39–72
[~2022-06-15] VITALS: Ht 175.3 cm; Wt 84.5 kg
[2022-06-15 21:03] LABS: HEMATOCRIT 32.6 % (39.0-50.0); HEMOGLOBIN 10.1 g/dl (14.0-18.0); IMMATURE GRANULOCYTES 0.4 % (0.0-5.0); MEAN CELL VOLUME 112.8 fL CALC (80.0-100.0); MEAN CORPUSCULAR HGB 34.9 pG CALC (26.0-32.0); NEUT# 3.49 thou/uL (1.82-7.42); RED BLOOD COUNT 2.89 mill/uL (4.70-6.10); RED CELL DISTRI WIDTH 16.2 % (11.5-15.5)
[2022-06-15 21:26] LABS: ALBUMIN 4.2 g/dL (3.2-5.0); ALKALINE PHOSPHATASE 82 u/l (38-126); ANION GAP 14 (6-22 (CALC)); BUN 19 mg/dL (8-23); BUN/CREATININE RATIO 15 (12-20 (CALC)); CARBON DIOXIDE 26 mmol/l (22-30); CHLORIDE 106 mmol/l (95-108); CPK 39 u/l (52-200); CREATININE 1.3 mg/dL (0.7-1.3); GFR FOR AFR.AMER. > 60 ML/MIN (>=60 (CALC)); GFR OTHER RACES 53 ML/MIN (>=60 (CALC)); MAGNESIUM 1.9 mg/dL (1.6-2.3); SGOT/AST 26 u/l (19-48); SODIUM 141 mmol/l (137-146); TOTAL PROTEIN 6.7 g/dL (6.3-8.2)
[2022-06-15 21:27] LABS: BILIRUBIN, TOTAL 0.8 mg/dL (0.0-1.4)
[2022-06-15 23:08] LABS: URINE BILIRUBIN - DIPSTICK NEGATIVE (NEGATIVE); URINE BLOOD DIPSTICK NEGATIVE (NEGATIVE); URINE COLOR YELLOW; URINE GLUCOSE - DIPSTICK NEGATIVE (NEGATIVE); URINE KETONE NEGATIVE (NEGATIVE); URINE LEUK ESTERASE NEGATIVE (NEGATIVE); URINE PH 5.5 (4.5-8.0); URINE PROTEIN - DIPSTICK NEGATIVE (NEG-TRACE); URINE SPECIFIC GRAVITY 1.025; URINE UROBILINOGEN - DIPSTICK 0.2 E.U./dL (0.2)
[2022-06-15 23:13] LABS: URINE NITRITE - DIPSTICK NEGATIVE (Negative)
[2022-06-15] MEDS ORDERED: PAXLOVID PO (23:50)
[2022-06-16] VITALS: BP 92/43
[2022-06-16 00:09] VITALS: BP 98/42
[2022-06-16 00:15] VITALS: BP 92/39
[2022-06-16 00:32] VITALS: BP 96/52
[2022-06-16 00:49] VITALS: BP 96/62
== END 2022-06-16 00:50 | disposition home or self-care (01) | DRG 179 ==
LOC: ED 19:35
PROVIDERS: Family Medicine
DX: U07.1 COVID-19 (principal); I10 Essential (primary) hypertension

== ENCOUNTER 2022-07-15 14:02 | Inpatient (IN) | payer OTHER, MEDICARE ==
[2022-07-15] VITALS (17 sets, daily range): BP systolic 117–154; BP diastolic 58–79
[~2022-07-15] VITALS: Ht 175.3 cm; Wt 84.8 kg
[~2022-07-15 14:02] MED LIST changes: -D32000 UNIT PO; +PAXLOVID PO; -TOPROL XL25 MG PO; +TOPROL XL50 MG PO; +[UNRECOGNIZED DRUG - CODE] PO
[2022-07-15 15:49] LABS: HEMATOCRIT 37.5 % (39.0-50.0); IMMATURE GRANULOCYTES 0.4 % (0.0-5.0); MEAN CELL VOLUME 109.6 fL CALC (80.0-100.0); MEAN CORPUSCULAR HGB 35.4 pG CALC (26.0-32.0); MEAN CORPUSCULAR HGB CONC 32.3 g/dL CAL (32.0-36.0); NEUT# 2.83 thou/uL (1.82-7.42); RED BLOOD COUNT 3.42 mill/uL (4.70-6.10); RED CELL DISTRI WIDTH 16.5 % (11.5-15.5)
[2022-07-15 15:50] LABS: HEMOGLOBIN 12.1 g/dl (14.0-18.0)
[2022-07-15 16:09] LABS: ALBUMIN 4.4 g/dL (3.2-5.0); ALKALINE PHOSPHATASE 93 u/l (38-126); AMYLASE 96 u/l (30-110); BILIRUBIN, TOTAL 0.9 mg/dL (0.0-1.4); BUN 15 mg/dL (8-23); BUN/CREATININE RATIO 13 (12-20 (CALC)); CARBON DIOXIDE 22 mmol/l (22-30); CHLORIDE 103 mmol/l (95-108); CREATININE 1.2 mg/dL (0.7-1.3); GFR FOR AFR.AMER. > 60 ML/MIN (>=60 (CALC)); GFR OTHER RACES 58 ML/MIN (>=60 (CALC)); LIPASE 136 u/l (23-300); SGOT/AST 32 u/l (19-48); SODIUM 140 mmol/l (137-146); TOTAL PROTEIN 6.8 g/dL (6.3-8.2)
[2022-07-15 16:10] LABS: ANION GAP 20 (6-22 (CALC)); POTASSIUM 5.3 mmol/l (3.5-5.1)
[2022-07-15 18:04] LABS: URINE BILIRUBIN - DIPSTICK NEGATIVE (NEGATIVE); URINE BLOOD DIPSTICK NEGATIVE (NEGATIVE); URINE COLOR YELLOW; URINE GLUCOSE - DIPSTICK NEGATIVE (NEGATIVE); URINE KETONE NEGATIVE (NEGATIVE); URINE LEUK ESTERASE NEGATIVE (NEGATIVE); URINE PROTEIN - DIPSTICK NEGATIVE (NEG-TRACE); URINE SPECIFIC GRAVITY 1.015; URINE UROBILINOGEN - DIPSTICK 0.2 E.U./dL (0.2)
[2022-07-15 18:06] LABS: URINE NITRITE - DIPSTICK NEGATIVE (Negative)
[2022-07-16] VITALS (17 sets, daily range): BP systolic 92–124; BP diastolic 34–62
[2022-07-16 06:23] LABS: HEMATOCRIT 35.8 % (39.0-50.0); HEMOGLOBIN 11.4 g/dl (14.0-18.0); IMMATURE GRANULOCYTES 0.2 % (0.0-5.0); MEAN CELL VOLUME 110.2 fL CALC (80.0-100.0); MEAN CORPUSCULAR HGB 35.1 pG CALC (26.0-32.0); MEAN CORPUSCULAR HGB CONC 31.8 g/dL CAL (32.0-36.0); NEUT# 3.07 thou/uL (1.82-7.42); RED BLOOD COUNT 3.25 mill/uL (4.70-6.10); RED CELL DISTRI WIDTH 16.3 % (11.5-15.5)
[2022-07-16 06:41] LABS: ALBUMIN 3.7 g/dL (3.2-5.0); ALKALINE PHOSPHATASE 91 u/l (38-126); ANION GAP 11 (6-22 (CALC)); BILIRUBIN, TOTAL 0.9 mg/dL (0.0-1.4); BUN 12 mg/dL (8-23); BUN/CREATININE RATIO 12 (12-20 (CALC)); CARBON DIOXIDE 22 mmol/l (22-30); CHLORIDE 107 mmol/l (95-108); GFR FOR AFR.AMER. > 60 ML/MIN (>=60 (CALC)); GFR OTHER RACES > 60 ML/MIN (>=60 (CALC)); MAGNESIUM 1.8 mg/dL (1.6-2.3); SGOT/AST 35 u/l (19-48); SODIUM 136 mmol/l (137-146); TOTAL PROTEIN 6.2 g/dL (6.3-8.2)
[2022-07-16 06:43] LABS: POTASSIUM 3.9 mmol/l (3.5-5.1)
[2022-07-16 07:09] LABS: INTERNATIONAL NORMALIZED RATIO 1.1 RATIO (0.7-1.3)
[2022-07-16] MEDS ORDERED: EQ ASPIRIN ADUL81 MG PO (11:44)
[2022-07-16] MEDS ORDERED: LASIX 20 MG TAB20 MG PO (11:44)
[2022-07-16] MEDS ORDERED: SPIRONOLACT25 MG PO (11:44)
[2022-07-16] MEDS ORDERED: HEMATINIC PL PO (11:45)
[2022-07-16 15:10] LABS: HEMATOCRIT 35.1 % (39.0-50.0); HEMOGLOBIN 11.1 g/dl (14.0-18.0)
[2022-07-17] VITALS (11 sets, daily range): BP systolic 98–142; BP diastolic 41–69
[2022-07-17 06:29] LABS: HEMATOCRIT 34.9 % (39.0-50.0); HEMOGLOBIN 11.1 g/dl (14.0-18.0); IMMATURE GRANULOCYTES 0.4 % (0.0-5.0); MEAN CELL VOLUME 112.2 fL CALC (80.0-100.0); MEAN CORPUSCULAR HGB 35.7 pG CALC (26.0-32.0); MEAN CORPUSCULAR HGB CONC 31.8 g/dL CAL (32.0-36.0); NEUT# 3.52 thou/uL (1.82-7.42); RED BLOOD COUNT 3.11 mill/uL (4.70-6.10); RED CELL DISTRI WIDTH 16.7 % (11.5-15.5)
[2022-07-17 06:50] LABS: ALBUMIN 3.3 g/dL (3.2-5.0); ALKALINE PHOSPHATASE 79 u/l (38-126); ANION GAP 13 (6-22 (CALC)); BILIRUBIN, TOTAL 1.1 mg/dL (0.0-1.4); BUN 10 mg/dL (8-23); BUN/CREATININE RATIO 9 (12-20 (CALC)); CARBON DIOXIDE 20 mmol/l (22-30); CHLORIDE 107 mmol/l (95-108); CREATININE 1.2 mg/dL (0.7-1.3); GFR FOR AFR.AMER. > 60 ML/MIN (>=60 (CALC)); GFR OTHER RACES 58 ML/MIN (>=60 (CALC)); POTASSIUM 4.2 mmol/l (3.5-5.1); SODIUM 136 mmol/l (137-146); TOTAL PROTEIN 5.5 g/dL (6.3-8.2)
[2022-07-17 06:55] LABS: SGOT/AST 63 u/l (19-48)
[2022-07-18] VITALS (7 sets, daily range): BP systolic 93–125; BP diastolic 39–58
[2022-07-18 06:07] LABS: HEMATOCRIT 30.8 % (39.0-50.0); HEMOGLOBIN 9.8 g/dl (14.0-18.0); MEAN CELL VOLUME 111.6 fL CALC (80.0-100.0); MEAN CORPUSCULAR HGB 35.5 pG CALC (26.0-32.0); MEAN CORPUSCULAR HGB CONC 31.8 g/dL CAL (32.0-36.0); RED BLOOD COUNT 2.76 mill/uL (4.70-6.10); RED CELL DISTRI WIDTH 16.3 % (11.5-15.5)
[2022-07-18 06:12] LABS: BUN 17 mg/dL (8-23); BUN/CREATININE RATIO 13 (12-20 (CALC)); CARBON DIOXIDE 22 mmol/l (22-30); CHLORIDE 105 mmol/l (95-108); CREATININE 1.3 mg/dL (0.7-1.3); GFR FOR AFR.AMER. > 60 ML/MIN (>=60 (CALC)); GFR OTHER RACES 53 ML/MIN (>=60 (CALC)); MAGNESIUM 1.7 mg/dL (1.6-2.3); POTASSIUM 4.1 mmol/l (3.5-5.1)
[2022-07-18 06:14] LABS: ANION GAP 10 (6-22 (CALC)); SODIUM 133 mmol/l (137-146)
[2022-07-19] VITALS (9 sets, daily range): BP systolic 87–122; BP diastolic 37–55
[2022-07-19 05:32] LABS: HEMATOCRIT 30.2 % (39.0-50.0); HEMOGLOBIN 9.8 g/dl (14.0-18.0); IMMATURE GRANULOCYTES 0.2 % (0.0-5.0); MEAN CELL VOLUME 110.2 fL CALC (80.0-100.0); MEAN CORPUSCULAR HGB 35.8 pG CALC (26.0-32.0); MEAN CORPUSCULAR HGB CONC 32.5 g/dL CAL (32.0-36.0); NEUT# 2.7 thou/uL (1.82-7.42); RED BLOOD COUNT 2.74 mill/uL (4.70-6.10); RED CELL DISTRI WIDTH 16.3 % (11.5-15.5)
[2022-07-19 06:09] LABS: CREATININE 1.4 mg/dL (0.7-1.3); POTASSIUM 3.9 mmol/l (3.5-5.1)
[2022-07-20 00:04] VITALS: BP 89/46
[2022-07-20 04:44] VITALS: BP 105/43
[2022-07-20 08:35] VITALS: BP 114/58
[2022-07-20 09:57] VITALS: BP 96/36
[2022-07-20 10:26] LABS: HEMATOCRIT 32.2 % (39.0-50.0); IMMATURE GRANULOCYTES 0.3 % (0.0-5.0); MEAN CELL VOLUME 112.2 fL CALC (80.0-100.0); MEAN CORPUSCULAR HGB 34.8 pG CALC (26.0-32.0); MEAN CORPUSCULAR HGB CONC 31.1 g/dL CAL (32.0-36.0); NEUT# 1.8 thou/uL (1.82-7.42); RED BLOOD COUNT 2.87 mill/uL (4.70-6.10)
[2022-07-20 12:25] VITALS: BP 133/65
[2022-07-20] MEDS ORDERED: VIBRAMYCIN100 M2 PO (14:10)
[2022-07-20] MEDS ORDERED: ZPAK PO (14:10)
[2022-07-20] MEDS ORDERED: AMOX/K CLAV875 M1 PO (14:15)
[2022-07-20 14:38] VITALS: BP 118/71
== END 2022-07-20 16:23 | disposition home health service (06) | DRG 417 ==
LOC: ED 14:02 → ED-I 18:00 → ED 18:23 → MS2 18:24
PROVIDERS: Internal Medicine; Nurse Practitioner; Surgery; ADMIT Internal Medicine; ATTEND Internal Medicine
PROC: 0FT44ZZ Resection of Gallbladder, Percutaneous Endoscopic Approach (ICD-10-PCS; principal; 2022-07-16)
DX: K80.20 Calculus of gallbladder without cholecystitis without obstruction (principal); J18.9 Pneumonia, unspecified organism; I48.21 Permanent atrial fibrillation; K82.1 Hydrops of gallbladder; I11.0 Hypertensive heart disease with heart failure; I50.9 Heart failure, unspecified; E11.51 Type 2 diabetes mellitus with diabetic peripheral angiopathy without gangrene; J44.9 Chronic obstructive pulmonary disease, unspecified; D64.9 Anemia, unspecified; R09.02 Hypoxemia; E03.9 Hypothyroidism, unspecified; K74.60 Unspecified cirrhosis of liver; E78.5 Hyperlipidemia, unspecified; I25.10 Atherosclerotic heart disease of native coronary artery without angina pectoris; N40.0 Benign prostatic hyperplasia without lower urinary tract symptoms; K21.9 Gastro-esophageal reflux disease without esophagitis; Z95.1 Presence of aortocoronary bypass graft; Z95.5 Presence of coronary angioplasty implant and graft; Z95.820 Peripheral vascular angioplasty status with implants and grafts; Z95.0 Presence of cardiac pacemaker; Z87.01 Personal history of pneumonia (recurrent); Z20.822 Contact with and (suspected) exposure to COVID-19
CPT/HCPCS: J1610; J1650; Q9967

== ENCOUNTER 2022-09-02 08:48 | Inpatient (IN) | payer OTHER, MEDICARE ==
[2022-09-02] VITALS (10 sets, daily range): BP systolic 84–149; BP diastolic 24–121
[~2022-09-02] VITALS: Ht 175.3 cm; Wt 84.0 kg
[~2022-09-02 08:48] MED LIST changes: +AMOX/K CLAV875 M1 PO; +EQ ASPIRIN ADUL81 MG PO; +HEMATINIC PL PO; +LASIX 20 MG TAB20 MG PO; +SPIRONOLACT25 MG PO; +ZPAK PO
[2022-09-02 09:22] LABS: HEMATOCRIT 34.6 % (39.0-50.0); HEMOGLOBIN 10.7 g/dl (14.0-18.0); IMMATURE GRANULOCYTES 0.1 % (0.0-5.0); MEAN CELL VOLUME 113.8 fL CALC (80.0-100.0); MEAN CORPUSCULAR HGB 35.2 pG CALC (26.0-32.0); MEAN CORPUSCULAR HGB CONC 30.9 g/dL CAL (32.0-36.0); NEUT# 8.05 thou/uL (1.82-7.42); RED BLOOD COUNT 3.04 mill/uL (4.70-6.10); RED CELL DISTRI WIDTH 15.8 % (11.5-15.5)
[2022-09-02 09:42] LABS: ALKALINE PHOSPHATASE 102 u/l (38-126); BILIRUBIN, TOTAL 1.5 mg/dL (0.0-1.4); BUN 16 mg/dL (8-23); BUN/CREATININE RATIO 16 (12-20 (CALC)); CARBON DIOXIDE 28 mmol/l (22-30); CHLORIDE 104 mmol/l (95-108); GFR FOR AFR.AMER. > 60 ML/MIN (>=60 (CALC)); GFR OTHER RACES > 60 ML/MIN (>=60 (CALC)); POTASSIUM 4.4 mmol/l (3.5-5.1); SGOT/AST 34 u/l (19-48)
[2022-09-02 09:57] LABS: ALBUMIN 4.4 g/dL (3.2-5.0); ANION GAP 13 (6-22 (CALC)); SODIUM 141 mmol/l (137-146); TOTAL PROTEIN 7.9 g/dL (6.3-8.2)
[2022-09-02] MEDS ORDERED: LISINOPRIL2.5 MG PO (11:02)
[2022-09-02] MEDS ORDERED: BUPROPION100 MG PO (11:03)
[2022-09-02] MEDS ORDERED: DICLOFENAC SODIUM (11:06)
[2022-09-02] MEDS ORDERED: K-TAB20 MEQ (11:07)
[2022-09-03 05:24] LABS: IMMATURE GRANULOCYTES 0.2 % (0.0-5.0); MEAN CELL VOLUME 115.5 fL CALC (80.0-100.0); MEAN CORPUSCULAR HGB 36.2 pG CALC (26.0-32.0); MEAN CORPUSCULAR HGB CONC 31.3 g/dL CAL (32.0-36.0); NEUT# 6.33 thou/uL (1.82-7.42); RED BLOOD COUNT 2.32 mill/uL (4.70-6.10); RED CELL DISTRI WIDTH 15.9 % (11.5-15.5)
[2022-09-03 05:25] LABS: HEMATOCRIT 26.8 % (39.0-50.0); HEMOGLOBIN 8.4 g/dl (14.0-18.0)
[2022-09-03 05:41] LABS: ALBUMIN 3.6 g/dL (3.2-5.0); ALKALINE PHOSPHATASE 103 u/l (38-126); ANION GAP 11 (6-22 (CALC)); BILIRUBIN, TOTAL 1.3 mg/dL (0.0-1.4); BUN 24 mg/dL (8-23); BUN/CREATININE RATIO 22 (12-20 (CALC)); CARBON DIOXIDE 28 mmol/l (22-30); CHLORIDE 105 mmol/l (95-108); CREATININE 1.1 mg/dL (0.7-1.3); GFR FOR AFR.AMER. > 60 ML/MIN (>=60 (CALC)); GFR OTHER RACES > 60 ML/MIN (>=60 (CALC)); POTASSIUM 4.7 mmol/l (3.5-5.1); SGOT/AST 32 u/l (19-48); SODIUM 138 mmol/l (137-146)
[2022-09-03 05:44] LABS: TOTAL PROTEIN 6.3 g/dL (6.3-8.2)
[2022-09-03 06:43] VITALS: BP 107/47
[2022-09-03 11:00] VITALS: BP 96/30
[2022-09-03 14:50] VITALS: BP 96/32
[2022-09-03 17:52] VITALS: BP 98/43
[2022-09-03 23:01] VITALS: BP 97/39
[2022-09-04 04:07] VITALS: BP 129/60
[2022-09-04 05:54] VITALS: BP 129/42
[2022-09-04 05:55] LABS: HEMOGLOBIN 9.2 g/dl (14.0-18.0); IMMATURE GRANULOCYTES 0.2 % (0.0-5.0); MEAN CELL VOLUME 113.7 fL CALC (80.0-100.0); MEAN CORPUSCULAR HGB 36.1 pG CALC (26.0-32.0); MEAN CORPUSCULAR HGB CONC 31.7 g/dL CAL (32.0-36.0); NEUT# 3.77 thou/uL (1.82-7.42); RED BLOOD COUNT 2.55 mill/uL (4.70-6.10); RED CELL DISTRI WIDTH 15.6 % (11.5-15.5)
[2022-09-04 06:12] LABS: ALBUMIN 3.3 g/dL (3.2-5.0); ALKALINE PHOSPHATASE 110 u/l (38-126); ANION GAP 12 (6-22 (CALC)); BILIRUBIN, TOTAL 0.9 mg/dL (0.0-1.4); BUN 24 mg/dL (8-23); BUN/CREATININE RATIO 24 (12-20 (CALC)); CARBON DIOXIDE 25 mmol/l (22-30); CHLORIDE 104 mmol/l (95-108); GFR FOR AFR.AMER. > 60 ML/MIN (>=60 (CALC)); GFR OTHER RACES > 60 ML/MIN (>=60 (CALC)); POTASSIUM 4.2 mmol/l (3.5-5.1); SGOT/AST 34 u/l (19-48); SODIUM 137 mmol/l (137-146); TOTAL PROTEIN 5.8 g/dL (6.3-8.2)
[2022-09-04 08:19] VITALS: BP 123/47
[2022-09-04 09:30] VITALS: BP 123/47
[2022-09-04] MEDS ORDERED: LEVAQUIN750 M1 PO (13:09)
== END 2022-09-04 14:55 | disposition home health service (06) | DRG 195 ==
LOC: ED 08:48 → ED-I 10:38 → ED 11:02 → MS2 11:03
PROVIDERS: Family Medicine; Nurse Practitioner Family; ADMIT Internal Medicine; ATTEND Internal Medicine
DX: J18.9 Pneumonia, unspecified organism (principal); I11.0 Hypertensive heart disease with heart failure; I50.9 Heart failure, unspecified; E11.51 Type 2 diabetes mellitus with diabetic peripheral angiopathy without gangrene; I25.10 Atherosclerotic heart disease of native coronary artery without angina pectoris; E03.9 Hypothyroidism, unspecified; E78.5 Hyperlipidemia, unspecified; N40.0 Benign prostatic hyperplasia without lower urinary tract symptoms; K21.9 Gastro-esophageal reflux disease without esophagitis; F32.A Depression, unspecified; F17.200 Nicotine dependence, unspecified, uncomplicated; Z95.1 Presence of aortocoronary bypass graft; Z95.0 Presence of cardiac pacemaker; Z20.822 Contact with and (suspected) exposure to COVID-19
CPT/HCPCS: J1650

== ENCOUNTER 2022-10-28 11:24 | Emergency (ER) | payer OTHER, MEDICARE ==
[~2022-10-28] VITALS: Ht 175.3 cm; Wt 86.0 kg
[2022-10-28] VITALS (7 sets, daily range): BP systolic 106–130; BP diastolic 45–90
[~2022-10-28 11:24] MED LIST changes: +BUPROPION100 MG PO; +DICLOFENAC SODIUM; +K-TAB20 MEQ; +LEVAQUIN750 M1 PO
[2022-10-28] MEDS ORDERED: CEPHALEXIN500 MG PO (12:11)
[2022-10-28] MEDS ORDERED: OFLOXACIN0.3 % OD (12:11)
== END 2022-10-28 12:35 | disposition home or self-care (01) | DRG 125 ==
LOC: ED 11:24
DX: H10.9 Unspecified conjunctivitis (principal)

== ENCOUNTER 2022-11-02 19:05 | Emergency (ER) | payer OTHER, MEDICARE ==
[~2022-11-02] VITALS: Ht 175.3 cm; Wt 86.0 kg
[~2022-11-02 19:05] MED LIST changes: +CEPHALEXIN500 MG PO; +OFLOXACIN0.3 % OD
[2022-11-02] MEDS ORDERED: ZPAK PO (20:42)
[2022-11-02] MEDS ORDERED: BENZONATATE200 MG PO (20:42)
[2022-11-02] MEDS ORDERED: ROBITUSSIN AC10 ML PO (20:42)
[2022-11-02 20:50] VITALS: BP 129/83
== END 2022-11-02 21:00 | disposition home or self-care (01) | DRG 125 ==
LOC: ED 19:05
DX: H10.9 Unspecified conjunctivitis (principal); J40 Bronchitis, not specified as acute or chronic

== ENCOUNTER 2022-12-23 09:36 | Observation (INO) | payer OTHER, MEDICARE ==
[2022-12-23] VITALS (19 sets, daily range): BP systolic 80–135; BP diastolic 33–106
[~2022-12-23] VITALS: Ht 175.3 cm; Wt 78.5 kg
[~2022-12-23 09:36] MED LIST changes: +BENZONATATE200 MG PO; +ROBITUSSIN AC10 ML PO
--- NOTE | 2022-12-23 09:36 | NUR ---
PATIENT TO ROOM VIA WHEELCHAIR
--- NOTE | 2022-12-23 10:23 | NUR ---
Reassessment of patient completed. No distress noted.
[2022-12-23 10:50] LABS: BASO% 0.5 % (0-3); EOS% 2.2 % (0-8); HEMATOCRIT 27.4 % (39.0-50.0); HEMOGLOBIN 8.1 g/dl (14.0-18.0); IMMATURE GRANULOCYTES 0.2 % (0.0-5.0); LYMPH% 17.7 % (15-41); MEAN CELL VOLUME 117.1 fL CALC (80.0-100.0); MEAN CORPUSCULAR HGB 34.6 pG CALC (26.0-32.0); MEAN CORPUSCULAR HGB CONC 29.6 g/dL CAL (32.0-36.0); MONO% 16.9 % (2-13); NEUT# 2.51 thou/uL (1.82-7.42); NEUT% 62.5 % (42-76); RED BLOOD COUNT 2.34 mill/uL (4.70-6.10); RED CELL DISTRI WIDTH 16.1 % (11.5-15.5)
[2022-12-23 10:59] LABS: ALBUMIN 3.6 g/dL (3.2-5.0); ALKALINE PHOSPHATASE 125 u/l (38-126); ANION GAP 9 (6-22 (CALC)); BUN 24 mg/dL (8-23); BUN/CREATININE RATIO 23 (12-20 (CALC)); CARBON DIOXIDE 27 mmol/l (22-30); CHLORIDE 108 mmol/l (95-108); CREATININE 1.1 mg/dL (0.7-1.3); GFR FOR AFR.AMER. > 60 ML/MIN (>=60 (CALC)); GFR OTHER RACES > 60 ML/MIN (>=60 (CALC)); POTASSIUM 4.9 mmol/l (3.5-5.1); SGOT/AST 23 u/l (19-48); SODIUM 139 mmol/l (137-146); TOTAL PROTEIN 6.2 g/dL (6.3-8.2)
[2022-12-23 11:00] LABS: BILIRUBIN, TOTAL 0.5 mg/dL (0.2-1.3)
--- NOTE | 2022-12-23 11:30 | NUR ---
Reassessment of patient completed. No distress noted.
[2022-12-23] MEDS ORDERED: LEVOTHYROXIN100 MCG PO (12:10)
[2022-12-23] MEDS ORDERED: NITROGLYCERIN0.4 MG (12:11)
--- NOTE | 2022-12-23 12:30 | NUR ---
Reassessment of patient completed. No distress noted.
--- NOTE | 2022-12-23 13:30 | NUR ---
Reassessment of patient completed. No distress noted.
--- NOTE | 2022-12-23 14:25 | NUR ---
REPORT GIVEN TO MASHA. PATIENT HAD 1150 URINE OUTPUT FROM URINALS.
--- NOTE | 2022-12-23 15:00 | NUR ---
PT ARRIVES TO RM 272 FROM ER VIA W/C,TRANSFERS TO THE BED B HIS SELF. PT IS ALERT AND ORIENTED X 3, PT HAS NO C/O PAIN AT THIS TIME. IV SITE TO THE LAC, ITACT AND FLUSHED WELL. PT HAS NO C/O OF SOB AT THIS TIME. PT HAS CALL LIGHT WITHIN REACH ALL SAFETY MEASURES IN PLACE.
--- NOTE | 2022-12-23 16:00 | NUR ---
PT LAYING IN BED WATCHING TV, ALERT AND ORIENTED. PT HAS NO C/O PAIN AT THIS TIME. PT HAS NO CHANGE IN STATUS. CALL LIGHT WITHIN REACH AND ALL SAFETY MEASURES IN PLACE.
--- NOTE | 2022-12-23 19:10 | NUR ---
PATIENT LAYING IN BED. ALERT AND ORIENTED. ABLE TO MAKE NEEDS KNOWN. ASSESSMENT COMPLETE. PATIENT HAS DRY NON PRODUCTIVE COUGH. NO DISTRESS NOTED. NO COMPLAINTS OF PAIN. BED REMAINS IN LOW POSITION. CALL TEAGUE IN REACH.
[2022-12-24] VITALS (7 sets, daily range): BP systolic 96–126; BP diastolic 32–55
--- NOTE | 2022-12-24 00:10 | NUR ---
PATIENT RESTING IN BED. NO COMPLAINTS OF PAIN. NO SIGNS OF DISTRESS. NON PRODUCTIVE COUGH REMAINS. BED REMAINS IN LOW POSITION. CALL TEAGUE IN REACH. REMAINS ON ISOLATION PRECAUTIONS FOR FLU.
--- NOTE | 2022-12-24 03:40 | NUR ---
PATIENT REMAINS RESTING IN BED. NO DISTRESS NOTED. DOES REMAIN COUGHING INTERITTENTLY. NO COMPLAINTS OF PAIN VOICED. BED REMAINS IN LOW POSITION. CALL TEAGUE AND BELINGINGS REMAIN IN REACH.
[2022-12-24 06:13] LABS: HEMATOCRIT 27.2 % (39.0-50.0); HEMOGLOBIN 8.1 g/dl (14.0-18.0); MEAN CELL VOLUME 115.7 fL CALC (80.0-100.0); MEAN CORPUSCULAR HGB 34.5 pG CALC (26.0-32.0); MEAN CORPUSCULAR HGB CONC 29.8 g/dL CAL (32.0-36.0); RED BLOOD COUNT 2.35 mill/uL (4.70-6.10); RED CELL DISTRI WIDTH 15.9 % (11.5-15.5)
[2022-12-24 06:31] LABS: ANION GAP 14 (6-22 (CALC)); BUN 30 mg/dL (8-23); BUN/CREATININE RATIO 30 (12-20 (CALC)); CALCULATED LDLCHOLESTEROL 24 mg/dL (62-129 (CALC)); CARBON DIOXIDE 26 mmol/l (22-30); CHLORIDE 104 mmol/l (95-108); GFR FOR AFR.AMER. > 60 ML/MIN (>=60 (CALC)); GFR OTHER RACES > 60 ML/MIN (>=60 (CALC)); HDL CHOLESTEROL 55 mg/dL (39.0-59.0); MAGNESIUM 1.8 mg/dL (1.6-2.3); SODIUM 139 mmol/l (137-146); TOTAL TRIGLYCERIDES 67 mg/dl (0-149); VLDL CHOLESTROL 13 mg/dl (0-38 (CALC))
[2022-12-24 06:35] LABS: CHOLESTEROL HDL RATIO 1.7 (<4.4 (CALC)); TOTAL CHOLESTEROL 92 mg/dl (0-199)
--- NOTE | 2022-12-24 08:00 | NUR ---
PT SITTING UP IN BED, EATING BREAKFAST, AWAKE AND ALERT, PT HAS NO C/O PAIN AT THIS TIME. PT HAS A CONGESTED COUGH WITH CLEAR PHLEGM. PT HAS IV SITE TO LAC, CLEAN AND INTACT. TELE LEAD IS ON AND ALL LEADS ATTACHED. CALL LIGHT WITHIN REACH AND ALL SAFETY MEASURES IN PLACE.
--- NOTE | 2022-12-24 12:00 | NUR ---
PT SITTING ON SIDE OF BED EATING LUNCH, PT HAS NO CHANGE IN MENTAL STATUS, PT HAS NO C/O PAIN AT THIS TIME. IV SITE TO LAC, INTACT WITH ANTIBIOTICS INFUSING. CALL LIGHT WITHIN REACH AND ALL SAFETY MEASURES IN PLACE.
--- NOTE | 2022-12-24 16:00 | NUR ---
PT IN BED RESTING, NO C/O PAIN. PT HAS NO CHANGE IN STATUS AT THIS TIME. IV SITE TO LAC, PATENT. CALL LIGHT WITHIN REACH
--- NOTE | 2022-12-24 20:00 | NUR ---
RECEIVED REPORT FROM NURSE MASHA PATIENT SITTING IN CHAIR, AMBULATORY, ON ISOLATION FOR INFLUENZA B, PATIENT ALERT ORIENTED, SALINE LOCK NOTED ON LAC PATENT FLUSHES WELL HOOKED ON TELEMETRY, PATIENT HAVING PRODUCTIVE COUGH WHITE IN COLOR FROTHY SMALL AMOUNT, PATIENT NOT IN DISTRESS, CALL LIGHT IN REACH.
[2022-12-25 00:26] VITALS: BP 109/35
--- NOTE | 2022-12-25 00:29 | NUR ---
PATIENT RESTING IN BED AT THIS TIME, NOT IN DISTRESS, CALL LIGHT IN REACH.
--- NOTE | 2022-12-25 04:03 | NUR ---
PATIENT RESTING IN BED, NOT IN DISTRESS, BREATHING UNLABORED, CALL LIGHT IN REACH.
[2022-12-25 05:27] VITALS: BP 108/58
[2022-12-25 05:34] LABS: BASO% 0.2 % (0-3); HEMATOCRIT 26.1 % (39.0-50.0); HEMOGLOBIN 7.9 g/dl (14.0-18.0); IMMATURE GRANULOCYTES 0.4 % (0.0-5.0); LYMPH% 4.3 % (15-41); MEAN CORPUSCULAR HGB 34.5 pG CALC (26.0-32.0); MEAN CORPUSCULAR HGB CONC 30.3 g/dL CAL (32.0-36.0); MONO% 5.5 % (2-13); NEUT# 4.75 thou/uL (1.82-7.42); NEUT% 89.6 % (42-76); RED BLOOD COUNT 2.29 mill/uL (4.70-6.10)
[2022-12-25 05:47] LABS: ALBUMIN 3.5 g/dL (3.2-5.0); ALKALINE PHOSPHATASE 107 u/l (38-126); ANION GAP 13 (6-22 (CALC)); BUN 44 mg/dL (8-23); BUN/CREATININE RATIO 37 (12-20 (CALC)); CARBON DIOXIDE 24 mmol/l (22-30); CHLORIDE 104 mmol/l (95-108); CREATININE 1.2 mg/dL (0.7-1.3); GFR FOR AFR.AMER. > 60 ML/MIN (>=60 (CALC)); GFR OTHER RACES 58 ML/MIN (>=60 (CALC)); MAGNESIUM 2.1 mg/dL (1.6-2.3); POTASSIUM 4.2 mmol/l (3.5-5.1); SGOT/AST 28 u/l (19-48); SODIUM 136 mmol/l (137-146); TOTAL PROTEIN 5.7 g/dL (6.3-8.2)
[2022-12-25 05:48] LABS: BILIRUBIN, TOTAL 0.2 mg/dL (0.2-1.3)
--- NOTE | 2022-12-25 08:02 | NUR ---
PT SITTING UP ON SIDE OF BED, A&OX3 AND EATING BREAKFAST. PT HAS NO C/O PAIN AT THIS TIME. IV SITE IN THE LAC, CLEAN AND INTACT. TELE ON AND LEADS ATTACHED. PT HAS PRODUCTIVE COUGH WITH WHITE SPUTUM. CALL LIGHT WITHIN REACH AND SAFETY PRECAUTIONS IN PLACE.
[2022-12-25 08:20] VITALS: BP 131/47
[2022-12-25 10:47] VITALS: BP 115/40
--- NOTE | 2022-12-25 12:00 | NUR ---
PT LAYING IN BED RESTING A&O X3, NO C/O PAIN AT THIS TIME. PT NOTED TO HAVE FLUID AROUND IV SITE FROM THE ANTIBIOTCS INFUSING. DR. LOCKE NOTIFIED THAT IV ANTIBIOTIC WAS STOPPED AND IV SITE WAS PULLED WITH CATHETER INTACT. PT HAS CALL VOLODYMYR POTTER REACH
[2022-12-25] MEDS ORDERED: VIBRAMYCIN100 M2 PO (13:56)
[2022-12-25] MEDS ORDERED: TAMIFLU30 MG PO (13:56)
[2022-12-25] MEDS ORDERED: MEDDOSEPAK PO (14:48)
--- NOTE | 2022-12-25 15:18 | NUR ---
Discharge instructions given. Patient verbalizes understanding of same. Discharged in stable condition via Ambulatory to Home with staff. All belongings sent with pt.
== END 2022-12-25 15:10 | disposition home health service (06) | DRG 292 ==
LOC: ED 09:36 → ED-I 11:26 → ED 11:26 → MS2 11:29
PROVIDERS: Family Medicine; Nurse Practitioner Family; ADMIT Internal Medicine; ATTEND Internal Medicine
DX: I11.0 Hypertensive heart disease with heart failure (principal); J44.1 Chronic obstructive pulmonary disease with (acute) exacerbation; I50.9 Heart failure, unspecified; J10.1 Influenza due to other identified influenza virus with other respiratory manifestations; D46.9 Myelodysplastic syndrome, unspecified; I48.91 Unspecified atrial fibrillation; E78.5 Hyperlipidemia, unspecified; E03.9 Hypothyroidism, unspecified; I25.10 Atherosclerotic heart disease of native coronary artery without angina pectoris; N40.0 Benign prostatic hyperplasia without lower urinary tract symptoms; I73.9 Peripheral vascular disease, unspecified; F31.9 Bipolar disorder, unspecified; K21.9 Gastro-esophageal reflux disease without esophagitis; F17.200 Nicotine dependence, unspecified, uncomplicated; Z95.1 Presence of aortocoronary bypass graft; Z95.0 Presence of cardiac pacemaker; Z95.820 Peripheral vascular angioplasty status with implants and grafts; Z95.5 Presence of coronary angioplasty implant and graft; Z20.822 Contact with and (suspected) exposure to COVID-19
CPT/HCPCS: G0378; J1650; J1756

== ENCOUNTER 2023-02-16 14:11 | Emergency (ER) | payer OTHER, MEDICARE ==
[~2023-02-16] VITALS: Ht 175.3 cm; Wt 75.0 kg
[~2023-02-16 14:11] MED LIST changes: +LEVOTHYROXIN100 MCG PO; +MEDDOSEPAK PO; +NITROGLYCERIN0.4 MG; +TAMIFLU30 MG PO
[2023-02-16 14:43] VITALS: BP 131/52
[2023-02-16 15:00] VITALS: BP 129/54
[2023-02-16 15:31] VITALS: BP 114/63
[2023-02-16] MEDS ORDERED: ZPAK PO (16:14)
[2023-02-16] MEDS ORDERED: MEDDOSEPAK PO (16:14)
[2023-02-16 16:21] VITALS: BP 114/63
== END 2023-02-16 16:28 | disposition home or self-care (01) | DRG 153 ==
LOC: ED 14:11
DX: J06.9 Acute upper respiratory infection, unspecified (principal); E11.9 Type 2 diabetes mellitus without complications; I25.10 Atherosclerotic heart disease of native coronary artery without angina pectoris; J43.9 Emphysema, unspecified; I50.9 Heart failure, unspecified; I48.91 Unspecified atrial fibrillation; F31.9 Bipolar disorder, unspecified; K21.9 Gastro-esophageal reflux disease without esophagitis; F17.200 Nicotine dependence, unspecified, uncomplicated; Z20.822 Contact with and (suspected) exposure to COVID-19

== ENCOUNTER 2023-06-10 06:14 | Emergency (ER) | payer OTHER, MEDICARE ==
[~2023-06-10] VITALS: Ht 175.3 cm; Wt 78.0 kg
[2023-06-10 06:27] VITALS: BP 141/53
[2023-06-10 06:31] VITALS: BP 133/53
[2023-06-10 06:58] LABS: BASO% 0.2 % (0-3); EOS% 0.8 % (0-8); IMMATURE GRANULOCYTES 0.4 % (0.0-5.0); LYMPH% 13.9 % (15-41); MEAN CELL VOLUME 109.1 fL CALC (80.0-100.0); MEAN CORPUSCULAR HGB 34.4 pG CALC (26.0-32.0); MEAN CORPUSCULAR HGB CONC 31.6 g/dL CAL (32.0-36.0); MONO% 16.7 % (2-13); NEUT# 3.63 thou/uL (1.82-7.42); RED BLOOD COUNT 2.76 mill/uL (4.70-6.10); RED CELL DISTRI WIDTH 14.4 % (11.5-15.5)
[2023-06-10 07:00] LABS: HEMATOCRIT 30.1 % (39.0-50.0); HEMOGLOBIN 9.5 g/dl (14.0-18.0)
[2023-06-10 07:06] LABS: ALBUMIN 3.9 g/dL (3.2-5.0); ALKALINE PHOSPHATASE 103 u/l (38-126); ANION GAP 14 (6-22 (CALC)); BUN 21 mg/dL (8-23); BUN/CREATININE RATIO 20 (12-20 (CALC)); CARBON DIOXIDE 24 mmol/l (22-30); CHLORIDE 105 mmol/l (95-108); GFR FOR AFR.AMER. > 60 ML/MIN (>=60 (CALC)); GFR OTHER RACES > 60 ML/MIN (>=60 (CALC)); POTASSIUM 4.2 mmol/l (3.5-5.1); SGOT/AST 32 u/l (19-48); SODIUM 139 mmol/l (137-146); TOTAL PROTEIN 6.3 g/dL (6.3-8.2)
[2023-06-10 07:12] VITALS: BP 148/86
[2023-06-10 07:14] LABS: BILIRUBIN, TOTAL 0.9 mg/dL (0.2-1.3)
[2023-06-10 08:00] VITALS: BP 131/61
[2023-06-10] MEDS ORDERED: VITAMIN B 12250 MCG PO (08:15)
[2023-06-10 08:21] VITALS: BP 125/78
[2023-06-10 08:30] VITALS: BP 124/51
== END 2023-06-10 08:45 | disposition home or self-care (01) | DRG 812 ==
LOC: ED 06:14 → ED-I 07:50 → ED 08:45
PROVIDERS: Family Medicine
DX: D53.9 Nutritional anemia, unspecified (principal); I50.9 Heart failure, unspecified; E11.9 Type 2 diabetes mellitus without complications; I25.10 Atherosclerotic heart disease of native coronary artery without angina pectoris; J43.9 Emphysema, unspecified; K21.9 Gastro-esophageal reflux disease without esophagitis; I48.91 Unspecified atrial fibrillation; F17.200 Nicotine dependence, unspecified, uncomplicated; F31.9 Bipolar disorder, unspecified; Z95.1 Presence of aortocoronary bypass graft; Z95.0 Presence of cardiac pacemaker; Z20.822 Contact with and (suspected) exposure to COVID-19

== ENCOUNTER 2023-06-26 21:47 | Emergency (ER) | payer OTHER, MEDICARE ==
[~2023-06-26] VITALS: Ht 175.3 cm; Wt 80.2 kg
[~2023-06-26 21:47] MED LIST changes: +VITAMIN B 12250 MCG PO
[2023-06-26 23:25] VITALS: BP 115/66
[2023-06-26 23:28] LABS: BASO% 0.6 % (0-3); EOS% 0.8 % (0-8); HEMATOCRIT 30.4 % (39.0-50.0); HEMOGLOBIN 9.4 g/dl (14.0-18.0); IMMATURE GRANULOCYTES 0.4 % (0.0-5.0); MEAN CELL VOLUME 110.9 fL CALC (80.0-100.0); MEAN CORPUSCULAR HGB 34.3 pG CALC (26.0-32.0); MEAN CORPUSCULAR HGB CONC 30.9 g/dL CAL (32.0-36.0); MONO% 19.9 % (2-13); NEUT# 3.63 thou/uL (1.82-7.42); NEUT% 69.3 % (42-76); RED BLOOD COUNT 2.74 mill/uL (4.70-6.10); RED CELL DISTRI WIDTH 16.3 % (11.5-15.5)
[2023-06-26 23:31] VITALS: BP 126/55
[2023-06-26 23:45] VITALS: BP 106/37
[2023-06-26 23:49] LABS: ALBUMIN 3.6 g/dL (3.2-5.0); ALKALINE PHOSPHATASE 96 u/l (38-126); ANION GAP 13 (6-22 (CALC)); BUN 20 mg/dL (8-23); BUN/CREATININE RATIO 20 (12-20 (CALC)); CARBON DIOXIDE 24 mmol/l (22-30); CHLORIDE 108 mmol/l (95-108); CPK 27 u/l (55-170); GFR FOR AFR.AMER. > 60 ML/MIN (>=60 (CALC)); GFR OTHER RACES > 60 ML/MIN (>=60 (CALC)); MAGNESIUM 1.7 mg/dL (1.6-2.3); POTASSIUM 4.5 mmol/l (3.5-5.1); SGOT/AST 34 u/l (19-48); SODIUM 141 mmol/l (137-146); TOTAL PROTEIN 5.9 g/dL (6.3-8.2)
[2023-06-27] VITALS (10 sets, daily range): BP systolic 85–129; BP diastolic 29–93
[2023-06-27 00:20] LABS: TSH, 3RD GENERATION < 0.02 uIU/mL (0.47 - 4.68)
[2023-06-27 01:19] LABS: URINE BLOOD DIPSTICK Negative (NEGATIVE); URINE COLOR Yellow; URINE GLUCOSE - DIPSTICK Negative (NEGATIVE); URINE KETONE Negative (NEGATIVE); URINE LEUK ESTERASE Negative (NEGATIVE); URINE NITRITE - DIPSTICK Negative (Negative); URINE PROTEIN - DIPSTICK Negative (NEG-TRACE); URINE SPECIFIC GRAVITY 1.025; URINE UROBILINOGEN - DIPSTICK 0.2 E.U./dL (0.2)
== END 2023-06-27 02:08 | disposition home or self-care (01) | DRG 948 ==
LOC: ED 21:47
PROVIDERS: Family Medicine
DX: R53.1 Weakness (principal); E03.9 Hypothyroidism, unspecified; E11.9 Type 2 diabetes mellitus without complications; I25.10 Atherosclerotic heart disease of native coronary artery without angina pectoris; I50.9 Heart failure, unspecified; J43.9 Emphysema, unspecified; K21.9 Gastro-esophageal reflux disease without esophagitis; I48.91 Unspecified atrial fibrillation; F31.9 Bipolar disorder, unspecified; F17.200 Nicotine dependence, unspecified, uncomplicated; Z20.822 Contact with and (suspected) exposure to COVID-19

== ENCOUNTER 2023-07-06 18:06 | Inpatient (IN) | payer OTHER, MEDICARE ==
[~2023-07-06] VITALS: Ht 175.3 cm; Wt 79.4 kg
[2023-07-06] VITALS (12 sets, daily range): BP systolic 79–133; BP diastolic 32–62
[~2023-07-06 18:06] MED LIST changes: -K-TAB20 MEQ; +K-TAB20 MEQ PO
[2023-07-06 19:11] LABS: BASO% 0.6 % (0-3); EOS% 0.6 % (0-8); HEMATOCRIT 29.7 % (39.0-50.0); HEMOGLOBIN 9.3 g/dl (14.0-18.0); IMMATURE GRANULOCYTES 0.4 % (0.0-5.0); LYMPH% 5.1 % (15-41); MEAN CELL VOLUME 109.6 fL CALC (80.0-100.0); MEAN CORPUSCULAR HGB 34.3 pG CALC (26.0-32.0); MEAN CORPUSCULAR HGB CONC 31.3 g/dL CAL (32.0-36.0); NEUT% 77.3 % (42-76); RED BLOOD COUNT 2.71 mill/uL (4.70-6.10); RED CELL DISTRI WIDTH 16.1 % (11.5-15.5)
[2023-07-06 19:25] LABS: ALKALINE PHOSPHATASE 77 u/l (38-126); BILIRUBIN, TOTAL 0.9 mg/dL (0.2-1.3); BUN 16 mg/dL (8-23); BUN/CREATININE RATIO 20 (12-20 (CALC)); CHLORIDE 115 mmol/l (95-108); CREATININE 0.8 mg/dL (0.7-1.3); D-DIMER 0.97 mg/L (0.19-0.60); GFR FOR AFR.AMER. > 60 ML/MIN (>=60 (CALC)); GFR OTHER RACES > 60 ML/MIN (>=60 (CALC)); POTASSIUM 3.6 mmol/l (3.5-5.1); SGOT/AST 24 u/l (19-48); SODIUM 139 mmol/l (137-146)
[2023-07-06 19:30] LABS: ALBUMIN 2.4 g/dL (3.2-5.0); ANION GAP 10 (6-22 (CALC)); CARBON DIOXIDE 18 mmol/l (22-30); INTERNATIONAL NORMALIZED RATIO 1.4 RATIO (0.7-1.3); PROTHROMBIN TIME 12.8 SECONDS (9.0-12.5); TOTAL PROTEIN 4.6 g/dL (6.3-8.2)
[2023-07-06 21:05] LABS: URINE BILIRUBIN - DIPSTICK Negative (NEGATIVE); URINE BLOOD DIPSTICK Negative (NEGATIVE); URINE GLUCOSE - DIPSTICK Negative (NEGATIVE); URINE KETONE Negative (NEGATIVE); URINE LEUK ESTERASE Negative (NEGATIVE); URINE NITRITE - DIPSTICK Negative (Negative); URINE PROTEIN - DIPSTICK Negative (NEG-TRACE); URINE SPECIFIC GRAVITY >=1.030; URINE UROBILINOGEN - DIPSTICK 0.2 E.U./dL (0.2)
[2023-07-06 21:08] LABS: URINE COLOR Yellow
[2023-07-06] MEDS ORDERED: TRELEGY ELLIPTA1 AER IN (22:32)
[2023-07-07] VITALS (31 sets, daily range): BP systolic 84–139; BP diastolic 33–96
[2023-07-07 09:01] LABS: HEMATOCRIT 30.1 % (39.0-50.0); HEMOGLOBIN 9.5 g/dl (14.0-18.0); MEAN CELL VOLUME 109.1 fL CALC (80.0-100.0); MEAN CORPUSCULAR HGB 34.4 pG CALC (26.0-32.0); MEAN CORPUSCULAR HGB CONC 31.6 g/dL CAL (32.0-36.0); RED BLOOD COUNT 2.76 mill/uL (4.70-6.10); RED CELL DISTRI WIDTH 16.4 % (11.5-15.5)
[2023-07-07 09:25] LABS: BUN 24 mg/dL (8-23); BUN/CREATININE RATIO 21 (12-20 (CALC)); CREATININE 1.1 mg/dL (0.7-1.3); GFR FOR AFR.AMER. > 60 ML/MIN (>=60 (CALC)); GFR OTHER RACES > 60 ML/MIN (>=60 (CALC)); MAGNESIUM 1.9 mg/dL (1.6-2.3); SODIUM 136 mmol/l (137-146)
[2023-07-07 09:26] LABS: ANION GAP 14 (6-22 (CALC)); CARBON DIOXIDE 25 mmol/l (22-30); CHLORIDE 101 mmol/l (95-108)
[2023-07-08 00:05] VITALS: BP 105/46
[2023-07-08 04:29] VITALS: BP 125/60
[2023-07-08 05:18] LABS: BASO% 0.1 % (0-3); HEMATOCRIT 28.1 % (39.0-50.0); HEMOGLOBIN 8.7 g/dl (14.0-18.0); IMMATURE GRANULOCYTES 0.5 % (0.0-5.0); LYMPH% 2.5 % (15-41); MEAN CELL VOLUME 110.6 fL CALC (80.0-100.0); MEAN CORPUSCULAR HGB 34.3 pG CALC (26.0-32.0); MONO% 5.9 % (2-13); NEUT# 11.16 thou/uL (1.82-7.42); RED BLOOD COUNT 2.54 mill/uL (4.70-6.10); RED CELL DISTRI WIDTH 16.8 % (11.5-15.5)
[2023-07-08 05:44] LABS: CREATININE 1.4 mg/dL (0.7-1.3); MAGNESIUM 2.2 mg/dL (1.6-2.3); POTASSIUM 3.9 mmol/l (3.5-5.1)
[2023-07-08 05:45] LABS: ALBUMIN 3.5 g/dL (3.2-5.0); BILIRUBIN, TOTAL 0.5 mg/dL (0.2-1.3); TOTAL PROTEIN 6.3 g/dL (6.3-8.2)
[2023-07-08 06:50] VITALS: BP 103/43
[2023-07-08 12:00] VITALS: BP 113/48
[2023-07-08] MEDS ORDERED: LEVOFLOXACIN500MG PO (15:53)
[2023-07-08] MEDS ORDERED: PREDNISONE10 MG PO (15:54)
[2023-07-08 15:56] VITALS: BP 108/48
== END 2023-07-08 17:07 | disposition home or self-care (01) | DRG 190 ==
LOC: ED 18:06 → ED-I 19:55 → ED 20:05 → ED-I 20:06 → MS2 07-07 13:47
PROVIDERS: Nurse Practitioner; ADMIT Internal Medicine; ATTEND Student in an Organized Health Care Education/Training Program
DX: J44.1 Chronic obstructive pulmonary disease with (acute) exacerbation (principal); J18.9 Pneumonia, unspecified organism; I25.810 Atherosclerosis of coronary artery bypass graft(s) without angina pectoris; I48.21 Permanent atrial fibrillation; J44.0 Chronic obstructive pulmonary disease with (acute) lower respiratory infection; E11.51 Type 2 diabetes mellitus with diabetic peripheral angiopathy without gangrene; I50.9 Heart failure, unspecified; E78.5 Hyperlipidemia, unspecified; E03.9 Hypothyroidism, unspecified; F31.9 Bipolar disorder, unspecified; N40.0 Benign prostatic hyperplasia without lower urinary tract symptoms; F17.200 Nicotine dependence, unspecified, uncomplicated; Z95.1 Presence of aortocoronary bypass graft; Z95.5 Presence of coronary angioplasty implant and graft; Z95.0 Presence of cardiac pacemaker; Z20.822 Contact with and (suspected) exposure to COVID-19
CPT/HCPCS: J1650; Q5106 EC; Q9967